=== PATIENT | male | born 1980 | race Caucasian/White ===

== ENCOUNTER 2016-11-28 23:37 | Emergency (ER) | payer SELFPAY ==
[2016-11-28] MEDS ORDERED: Ketorolac 30 MG/ML SDV IVPUSH ONE (23:51)
[2016-11-28] MEDS ORDERED: Sodium Chloride 0.9% 10 ML Syringe FLUSH PRN (23:51)
[2016-11-28] MEDS ORDERED: Ondansetron 4 MG/2 ML SDV IVPUSH ONE (23:51)
[2016-11-28] MEDS ORDERED: Sodium Chloride 0.9% 2.5 ML Syringe FLUSH PRN (23:51)
[2016-11-28] MEDS ORDERED: Sodium Chloride 0.9% 1,000 ML IV ONE (23:51)
[2016-11-28] MEDS ORDERED: HYDROmorphone 2 MG/ML Syringe IVPUSH ONE (23:51)
--- NOTE | 2016-11-28 23:54 | EDM.PDOC ---
ED HPI GENERAL MEDICAL PROBLEM - General Chief Complaint: Abdominal Pain Stated Complaint: ABDOMINAL PAIN/BACK PAIN Time Seen by Provider: 11/28/16 23:47 - History of Present Illness INITIAL COMMENTS - FREE TEXT/NARRATIVE: HISTORY AND PHYSICAL: History of present illness: Patient today 36-year-old male presents with a concern of right upper quadrant abdominal pain and associated nausea and states quite severe in cerebrotomy 5: 30 PM tonight he denies any traumas been no fever chills nausea vomiting he denies any history of prior gallbladder disease urolithiasis or other medical history. Review of systems: As per history of present illness and below otherwise all systems reviewed and negative. Past medical history: As per history of present illness and as reviewed below otherwise noncontributory. Surgical history: As per history of present illness and as reviewed below otherwise noncontributory. Social history: No reported history of drug or alcohol abuse. Family history: As per history of present illness and as reviewed below otherwise noncontributory. Physical exam: HEENT: Atraumatic, normocephalic, pupils reactive, negative for conjunctival pallor or scleral icterus, mucous membranes moist, throat clear, neck supple, nontender, trachea midline. Lungs: Clear to auscultation, breath sounds equal bilaterally, chest nontender. Heart: S1S2, regular, negative for clicks, rubs, or JVD. Abdomen: Soft, nondistended, tenderness in the right upper quadrant with deep palpation voluntary guarding no rebound. Negative for masses or hepatosplenomegaly. Negative for costovertebral tenderness. Pelvis: Stable nontender. Genitourinary: Deferred. Rectal: Deferred. Extremities: Atraumatic, negative for cords or calf pain. Neurovascular unremarkable. Neuro: Awake, alert, oriented. Cranial nerves II through XII unremarkable. Cerebellum unremarkable. Motor and sensory unremarkable throughout. Exam nonfocal. Diagnostics: CBC CMP amylase lipase UA ultrasound right upper quadrant chest x-ray Therapeutics: Normal saline 1 L bolus Toradol 30 mg IV Zofran 4 mg IV Dilaudid 1 mg IV Impression: #1 Right upper quadrant abdominal pain Definitive disposition and diagnosis as appropriate pending reevaluation and review of above. abdomen Pain Score (Numeric/FACES): 10 - Related Data Allergies Allergy/AdvReac Type Severity Reaction Status Date / Time No Known Allergies Allergy Verified 11/28/16 23:41 Home Meds: Home Meds . [No Known Home Meds] 11/28/16 [History] Past Medical History - Past Health History Medical/Surgical History: Denies Medical/Surgical History Social & Family History - Family History Family Medical History: Noncontributory - Tobacco Use Smoking Status *Q: Current Every Day Smoker Years of Tobacco use: 20 Packs/Tins Daily: 1 - Recreational Drug Use Recreational Drug Use: No ED ROS GENERAL - Review of Systems Review Of Systems: ROS reveals no pertinent complaints other than HPI. ED EXAM, GENERAL - Physical Exam Exam: See Below (See dictation) Course - Vital Signs Last Recorded V/S: Last Vital Signs Temp 35.5 C 11/28/16 23:42 Pulse 60 11/28/16 23:42 Resp 18 11/28/16 23:42 BP 170/105 H 11/28/16 23:42 Pulse Ox 97 11/28/16 23:42 - Orders/Labs/Meds Orders: Active Orders 24 hr Category Date Time Status EKG Documentation Completion [RC] STAT Care 11/28/16 23:49 Active Abdomen Ltd [US] Stat Exams 11/29/16 01:14 Taken Chest 1V Frontal [CR] Stat Exams 11/28/16 23:50 Taken Sodium Chloride 0.9% [Saline Flush] Med 11/28/16 23:51 Active 10 ml FLUSH ASDIRECTED PRN Sodium Chloride 0.9% [Saline Flush] Med 11/28/16 23:51 Active 2.5 ml FLUSH ASDIRECTED PRN Saline Lock Insert [OM.PC] Stat Oth 11/28/16 23:49 Ordered Medication Orders Sodium Chloride (Saline Flush) 10 ml FLUSH ASDIRECTED PRN PRN Reason: Keep Vein Open Sodium Chloride (Saline Flush) 2.5 ml FLUSH ASDIRECTED PRN PRN Reason: Keep Vein Open Labs: Laboratory Tests 11/29/16 11/29/16 11/29/16 Range/Units 00:15 00:15 00:15 WBC 12.67 H (4.0-11.0) K/uL RBC 5.10 (4.50-5.90) M/uL Hgb 15.5 (13.0-17.0) g/dL Hct 44.6 (38.0-50.0) % MCV 87.5 (80.0-98.0) fL MCH 30.4 (27.0-32.0) pg MCHC 34.8 (31.0-37.0) g/dL RDW Std Deviation 42.8 (28.0-62.0) fl RDW Coeff of Hernandez 13 (11.0-15.0) % Plt Count 151 (150-400) K/uL MPV 10.40 (7.40-12.00) fL Neut % (Auto) 84.3 H (48.0-80.0) % Lymph % (Auto) 12.1 L (16.0-40.0) % Buchanan % (Auto) 3.2 (0.0-15.0) % Eos % (Auto) 0.2 (0.0-7.0) % Baso % (Auto) 0.2 (0.0-1.5) % Neut # (Auto) 10.7 H (1.4-5.7) K/uL Lymph # (Auto) 1.5 (0.6-2.4) K/uL Buchanan # (Auto) 0.4 (0.0-0.8) K/uL Eos # (Auto) 0.0 (0.0-0.7) K/uL Baso # (Auto) 0.0 (0.0-0.1) K/uL Nucleated RBC % 0.0 /100WBC Nucleated RBCs # 0 K/uL INR 1.02 (0.86-1.11) Sodium 143 (136-146) mmol/L Potassium 4.1 (3.5-5.1) mmol/L Chloride 107 (98-110) mmol/L Carbon Dioxide 24 (21-31) mmol/L BUN 12 (6.0-23.0) mg/dL Creatinine 1.0 (0.6-1.5) mg/dL Est Cr Clr Drug Dosing 109.81 mL/min Estimated GFR (MDRD) > 60.0 ml/min Glucose 136 H (60-110) mg/dL Calcium 9.7 (8.8-10.8) mg/dL Total Bilirubin 0.4 (0.1-1.5) mg/dL AST 17 (5-40) IU/L ALT 26 (8-54) IU/L Alkaline Phosphatase 98 (40-150) Total Protein 7.3 (6.0-8.0) g/dL Albumin 4.3 (3.5-5.0) g/dL Globulin 3.0 (2.0-3.5) g/dL Albumin/Globulin Ratio 1.4 (1.3-2.8) Amylase 44 (10-90) U/L Lipase 13 (7-80) U/L Urine Color Urine Appearance Urine pH (5.0-8.0) Ur Specific [place] (1.001-1.035) Urine Protein (NEGATIVE) mg/dL Urine Glucose (UA) (NEGATIVE) mg/dL Urine Ketones (NEGATIVE) mg/dL Urine Occult Blood (NEGATIVE) Urine Nitrite (NEGATIVE) Urine Bilirubin (NEGATIVE) Urine Urobilinogen (<2.0) EU/dL Ur Leukocyte Esterase (NEGATIVE) Urine RBC (0-2/HPF) Urine WBC (0-5/HPF) Ur Epithelial Cells (NONE-FEW) Urine Bacteria (NEGATIVE) Urine Mucus (NONE-MOD) 11/29/16 Range/Units 00:20 WBC (4.0-11.0) K/uL RBC (4.50-5.90) M/uL Hgb (13.0-17.0) g/dL Hct (38.0-50.0) % MCV (80.0-98.0) fL MCH (27.0-32.0) pg MCHC (31.0-37.0) g/dL RDW Std Deviation (28.0-62.0) fl RDW Coeff of Hernandez (11.0-15.0) % Plt Count (150-400) K/uL MPV (7.40-12.00) fL Neut % (Auto) (48.0-80.0) % Lymph % (Auto) (16.0-40.0) % Buchanan % (Auto) (0.0-15.0) % Eos % (Auto) (0.0-7.0) % Baso % (Auto) (0.0-1.5) % Neut # (Auto) (1.4-5.7) K/uL Lymph # (Auto) (0.6-2.4) K/uL Buchanan # (Auto) (0.0-0.8) K/uL Eos # (Auto) (0.0-0.7) K/uL Baso # (Auto) (0.0-0.1) K/uL Nucleated RBC % /100WBC Nucleated RBCs # K/uL INR (0.86-1.11) Sodium (136-146) mmol/L Potassium (3.5-5.1) mmol/L Chloride (98-110) mmol/L Carbon Dioxide (21-31) mmol/L BUN (6.0-23.0) mg/dL Creatinine (0.6-1.5) mg/dL Est Cr Clr Drug Dosing mL/min Estimated GFR (MDRD) ml/min Glucose (60-110) mg/dL Calcium (8.8-10.8) mg/dL Total Bilirubin (0.1-1.5) mg/dL AST (5-40) IU/L ALT (8-54) IU/L Alkaline Phosphatase (40-150) Total Protein (6.0-8.0) g/dL Albumin (3.5-5.0) g/dL Globulin (2.0-3.5) g/dL Albumin/Globulin Ratio (1.3-2.8) Amylase (10-90) U/L Lipase (7-80) U/L Urine Color YELLOW Urine Appearance CLEAR Urine pH 6.0 (5.0-8.0) Ur Specific [place] >= 1.030 (1.001-1.035) Urine Protein NEGATIVE (NEGATIVE) mg/dL Urine Glucose (UA) NEGATIVE (NEGATIVE) mg/dL Urine Ketones NEGATIVE (NEGATIVE) mg/dL Urine Occult Blood NEGATIVE (NEGATIVE) Urine Nitrite NEGATIVE (NEGATIVE) Urine Bilirubin NEGATIVE (NEGATIVE) Urine Urobilinogen 0.2 (<2.0) EU/dL Ur Leukocyte Esterase NEGATIVE (NEGATIVE) Urine RBC 0-3 (0-2/HPF) Urine WBC 2-4 (0-5/HPF) Ur Epithelial Cells RARE (NONE-FEW) Urine Bacteria RARE (NEGATIVE) Urine Mucus LIGHT (NONE-MOD) Meds: Medications Generic Name Dose Route Start Last Admin Trade Name Freq PRN Reason Stop Dose Admin Sodium Chloride 10 ml 11/28/16 23:51 Saline Flush FLUSH ASDIRECTED PRN Keep Vein Open Sodium Chloride 2.5 ml 11/28/16 23:51 Saline Flush FLUSH ASDIRECTED PRN Keep Vein Open Discontinued Medications Generic Name Dose Route Start Last Admin Trade Name Freq PRN Reason Stop Dose Admin Hydromorphone HCl 1 mg 11/28/16 23:51 11/29/16 00:21 Dilaudid IVPUSH 11/28/16 23:52 1 mg ONETIME ONE Administration Sodium Chloride 1,000 mls @ 999 mls/hr 11/28/16 23:51 11/29/16 00:18 Normal Saline IV 11/29/16 00:51 999 mls/hr STAT ONE Administration Ketorolac Tromethamine 30 mg 11/28/16 23:51 11/29/16 00:19 Toradol IVPUSH 11/28/16 23:52 30 mg ONETIME ONE Administration Ondansetron HCl 4 mg 11/28/16 23:51 11/29/16 00:17 Zofran IVPUSH 11/28/16 23:52 4 mg ONETIME ONE Administration Departure - Departure Time of Disposition: 02:21 Disposition: Home, Self-Care 01 Condition: Good Clinical Impression: Biliary colic, Cholelithiasis - Discharge Information Forms: ED Department Discharge Additional Instructions: The following information is given to patients seen in the emergency department who are being discharged to home. This information is to outline your options for follow-up care. We provide all patients seen in our emergency department with a follow-up referral. The need for follow-up, as well as the timing and circumstances, are variable depending upon the specifics of your emergency department visit. If you don't have a primary care physician on staff, we will provide you with a referral. We always advise you to contact your personal physician following an emergency department visit to inform them of the circumstance of the visit and for follow-up with them and/or the need for any referrals to a consulting specialist. The emergency department will also refer you to a specialist when appropriate. This referral assures that you have the opportunity for followup care with a specialist. All of these measure are taken in an effort to provide you with optimal care, which includes your followup. Under all circumstances we always encourage you to contact your private physician who remains a resource for coordinating your care. When calling for followup care, please make the office aware that this follow-up is from your recent emergency room visit. If for any reason you are refused follow-up, please contact the [facility] emergency department at and asked to speak to the emergency department charge nurse. [facility] Specialty Care - General Surgery Professional Building [address] [place] [address], [address] [place] [address] Diet as discussed all schedule routine appointment general surgery above is discussed to return as needed as discussed - My Orders Last 24 Hours: My Active Orders 11/28/16 23:49 EKG Documentation Completion [RC] STAT Saline Lock Insert [OM.PC] Stat 11/28/16 23:50 Chest 1V Frontal [CR] Stat 11/28/16 23:51 Sodium Chloride 0.9% [Saline Flush] 10 ml FLUSH ASDIRECTED PRN Sodium Chloride 0.9% [Saline Flush] 2.5 ml FLUSH ASDIRECTED PRN 11/29/16 01:14 Abdomen Ltd [US] Stat - Assessment/Plan Last 24 Hours: My Active Orders 11/28/16 23:49 EKG Documentation Completion [RC] STAT Saline Lock Insert [OM.PC] Stat 11/28/16 23:50 Chest 1V Frontal [CR] Stat 11/28/16 23:51 Sodium Chloride 0.9% [Saline Flush] 10 ml FLUSH ASDIRECTED PRN Sodium Chloride 0.9% [Saline Flush] 2.5 ml FLUSH ASDIRECTED PRN 11/29/16 01:14 Abdomen Ltd [US] Stat
[2016-11-29 00:53] LABS: CHLORIDE,CL 107 mmol/L (98-110); SODIUM,NA 143 mmol/L (136-146)
[2016-11-29 02:50] VITALS: BP 102/67
--- NOTE | 2016-11-30 15:17 | CR ---
EXAM DATE: 11/28/16 PATIENT'S AGE: 36 Patient: MAL RANDOLPH Facility: [place], [place] Site . Site : 1980 Study: XRay Chest [id number] 12:54:59 AM Ordering Physician: Ruba Cordero Final Report: INDICATION: PAIN, SOB TECHNIQUE: Chest 1 view. COMPARISON: None. FINDINGS: Cardiovascular and mediastinum: Heart size and vasculature are normal in caliber and appearance. Mediastinum is within normal limits. Lungs and pleural space: Lungs are clear. No sign of infiltrate or mass. No sign of pleural effusion. No pneumothorax. Bones and soft tissues: No significant findings. IMPRESSION: Unremarkable chest. Dictated by: Jhoan Sheth MD @ 11/29/2016 00:59:12 (Electronic Signature) Report Signed by Proxy. CARISA
--- NOTE | 2016-11-30 15:18 | US ---
EXAM DATE: 11/28/16 PATIENT'S AGE: 36 Patient: MAL RANDOLPH Facility: [place], [place] Site . Site : 1980 Study: US Abdomen [id number]/4/[id number] 1:35:39 AM Ordering Physician: Ruba Cordero Final Report: INDICATION: RUQ PAIN TECHNIQUE: Ultrasound abdomen limited. Sonographic images of the right upper quadrant were obtained using day-scale and color Doppler images. COMPARISON: None FINDINGS: Liver: Normal in size and echotexture. No masses. No intrahepatic biliary dilatation. Gallbladder: Cholelithiasis. Mild thickening of the gallbladder wall measuring up to 4mm. No pericholecystic fluid. Common bile duct: 3 mm. Pancreas: Normal. Right kidney: 11.9 cm. Normal echotexture and cortex. No masses, stones, or hydronephrosis. Vasculature: Proximal abdominal aorta and IVC are normal. IMPRESSION: Cholelithiasis. Mild thickening of the gallbladder wall measuring up to 4mm. Dictated by Lavell Brown MD @ 11/29/2016 1:41:21 AM Dictated by: Lavell Brown MD @ 11/29/2016 01:42:22 (Electronic Signature) Report Signed by Proxy. CARISA
== END 2016-11-29 02:48 | disposition home or self-care (01) ==
LOC: MW.ED 23:37
DX: K80.70 Calculus of gallbladder and bile duct without cholecystitis without obstruction (principal); F17.210 Nicotine dependence, cigarettes, uncomplicated
CPT/HCPCS: 36415; 71010; 76705; 80053; 81001; 82150; 83690; 85025; 85610; 96361; 96374; 96375; 99285; J1170; J1885; J2405; J7040; 99283

== ENCOUNTER 2017-04-02 23:13 | Emergency (ER) | payer BC ==
[2017-04-02] MEDS ORDERED: Ketorolac 30 MG/ML SDV IVPUSH ONE (23:40)
[2017-04-02] MEDS ORDERED: Sodium Chloride 0.9% 1,000 ML IV ONE (23:40)
[2017-04-02] MEDS ORDERED: Ondansetron 4 MG/2 ML SDV IVPUSH ONE (23:40)
--- NOTE | 2017-04-02 23:42 | EDM.PDOC ---
ED HPI GENERAL MEDICAL PROBLEM - General Chief Complaint: Abdominal Pain Stated Complaint: STOMACH PAIN Time Seen by Provider: 04/02/17 23:37 - History of Present Illness INITIAL COMMENTS - FREE TEXT/NARRATIVE: HISTORY AND PHYSICAL: History of present illness: Patient 36-year-old white male sensory concern of abdominal pain patient was seen prior in the emergency department with similar and diagnosed with cholelithiasis he was discharged with biliary colic with follow-up with general surgery patient did not make appointment or see primary medical doctor he returns with recurrence of pain nausea no vomiting fever chills shortness of breath or other concern Review of systems: As per history of present illness and below otherwise all systems reviewed and negative. Past medical history: As per history of present illness and as reviewed below otherwise noncontributory. Surgical history: As per history of present illness and as reviewed below otherwise noncontributory. Social history: No reported history of drug or alcohol abuse. Family history: As per history of present illness and as reviewed below otherwise noncontributory. Physical exam: HEENT: Atraumatic, normocephalic, pupils reactive, negative for conjunctival pallor or scleral icterus, mucous membranes moist, throat clear, neck supple, nontender, trachea midline. Lungs: Clear to auscultation, breath sounds equal bilaterally, chest nontender. Heart: S1S2, regular, negative for clicks, rubs, or JVD. Abdomen: Soft, nondistended, mild tenderness in right upper quadrant deep palpation no rebound no guarding. Negative for masses or hepatosplenomegaly. Negative for costovertebral tenderness. Pelvis: Stable nontender. Genitourinary: Deferred. Rectal: Deferred. Extremities: Atraumatic, negative for cords or calf pain. Neurovascular unremarkable. Neuro: Awake, alert, oriented. Cranial nerves II through XII unremarkable. Cerebellum unremarkable. Motor and sensory unremarkable throughout. Exam nonfocal. Diagnostics: CBC CMP amylase lipase Therapeutics: .9 normal saline 1 L bolus Toradol 30 mg IV Zofran 4 mg IV Impression: #1 biliary colic #2 medical noncompliance Definitive disposition and diagnosis as appropriate pending reevaluation and review of above. - Related Data Allergies Allergy/AdvReac Type Severity Reaction Status Date / Time No Known Allergies Allergy Verified 04/02/17 23:42 Home Meds: Home Meds . [No Known Home Meds] 11/28/16 [History] Past Medical History - Past Health History Medical/Surgical History: Denies Medical/Surgical History Social & Family History - Family History Family Medical History: Noncontributory - Tobacco Use Smoking Status *Q: Current Every Day Smoker Years of Tobacco use: 20 Packs/Tins Daily: 1 - Recreational Drug Use Recreational Drug Use: No ED ROS GENERAL - Review of Systems Review Of Systems: ROS reveals no pertinent complaints other than HPI. ED EXAM, GENERAL - Physical Exam Exam: See Below (See dictation) Course - Vital Signs Last Recorded V/S: Last Vital Signs Temp 36.3 C 04/02/17 23:13 Pulse 61 04/02/17 23:13 Resp 18 04/02/17 23:13 BP 149/87 H 04/02/17 23:13 Pulse Ox 95 04/02/17 23:13 - Orders/Labs/Meds Orders: Active Orders 24 hr Category Date Time Status Sodium Chloride 0.9% [Normal Saline] 1,000 ml Med 04/02/17 23:40 Active IV STAT Medication Orders Sodium Chloride (Normal Saline) 1,000 mls @ 999 mls/hr IV STAT ONE Stop: 04/03/17 00:40 Last Admin: 04/03/17 00:06 Dose: 999 mls/hr Labs: Laboratory Tests 04/02/17 Range/Units 00:01 WBC 8.50 (4.0-11.0) K/uL RBC 5.11 (4.50-5.90) M/uL Hgb 15.5 (13.0-17.0) g/dL Hct 44.9 (38.0-50.0) % MCV 87.9 (80.0-98.0) fL MCH 30.3 (27.0-32.0) pg MCHC 34.5 (31.0-37.0) g/dL RDW Std Deviation 41.7 (28.0-62.0) fl RDW Coeff of Hernandez 13 (11.0-15.0) % Plt Count 145 L (150-400) K/uL MPV 10.50 (7.40-12.00) fL Neut % (Auto) 64.0 (48.0-80.0) % Lymph % (Auto) 26.8 (16.0-40.0) % Ray % (Auto) 7.6 (0.0-15.0) % Eos % (Auto) 1.5 (0.0-7.0) % Baso % (Auto) 0.1 (0.0-1.5) % Neut # (Auto) 5.4 (1.4-5.7) K/uL Lymph # (Auto) 2.3 (0.6-2.4) K/uL Ray # (Auto) 0.7 (0.0-0.8) K/uL Eos # (Auto) 0.1 (0.0-0.7) K/uL Baso # (Auto) 0.0 (0.0-0.1) K/uL Meds: Medications Generic Name Dose Route Start Last Admin Trade Name Freq PRN Reason Stop Dose Admin Sodium Chloride 1,000 mls @ 999 mls/hr 04/02/17 23:40 04/03/17 00:06 Normal Saline IV 04/03/17 00:40 999 mls/hr STAT ONE Administration Discontinued Medications Generic Name Dose Route Start Last Admin Trade Name Freq PRN Reason Stop Dose Admin Ketorolac Tromethamine 30 mg 04/02/17 23:40 04/03/17 00:06 Toradol IVPUSH 04/02/17 23:41 30 mg ONETIME ONE Administration Ondansetron HCl 4 mg 04/02/17 23:40 04/03/17 00:06 Zofran IVPUSH 04/02/17 23:41 4 mg ONETIME ONE Administration Departure - Departure Time of Disposition: 00:30 Disposition: Home, Self-Care 01 Condition: Good Clinical Impression: Cholelithiasis, Biliary colic - Discharge Information Referrals: PCP,None [Primary Care Provider] - Forms: ED Department Discharge Additional Instructions: The following information is given to patients seen in the emergency department who are being discharged to home. This information is to outline your options for follow-up care. We provide all patients seen in our emergency department with a follow-up referral. The need for follow-up, as well as the timing and circumstances, are variable depending upon the specifics of your emergency department visit. If you don't have a primary care physician on staff, we will provide you with a referral. We always advise you to contact your personal physician following an emergency department visit to inform them of the circumstance of the visit and for follow-up with them and/or the need for any referrals to a consulting specialist. The emergency department will also refer you to a specialist when appropriate. This referral assures that you have the opportunity for followup care with a specialist. All of these measure are taken in an effort to provide you with optimal care, which includes your followup. Under all circumstances we always encourage you to contact your private physician who remains a resource for coordinating your care. When calling for followup care, please make the office aware that this follow-up is from your recent emergency room visit. If for any reason you are refused follow-up, please contact the [facility] emergency department at and asked to speak to the emergency department charge nurse. [facility] Specialty Care - General Surgery Professional Building [address] [place] [address], [address] [place] [address] Motrin/Tylenol as directed diet as discussed: Schedule appointment with general surgery as discussed return as needed as discussed - My Orders Last 24 Hours: My Active Orders 04/02/17 23:40 Sodium Chloride 0.9% [Normal Saline] 1,000 ml IV STAT - Assessment/Plan Last 24 Hours: My Active Orders 04/02/17 23:40 Sodium Chloride 0.9% [Normal Saline] 1,000 ml IV STAT
[2017-04-03 00:52] LABS: CHLORIDE,CL 106 mmol/L (98-110); SODIUM,NA 140 mmol/L (136-146)
[2017-04-03 01:24] VITALS: BP 119/64
== END 2017-04-03 01:22 | disposition home or self-care (01) ==
LOC: MW.ED 23:13
DX: K80.70 Calculus of gallbladder and bile duct without cholecystitis without obstruction (principal); F17.210 Nicotine dependence, cigarettes, uncomplicated
CPT/HCPCS: 80053; 82150; 83690; 85025; 96361; 96374; 96375; 99284; J1885; J2405; J7040; 99282

== ENCOUNTER 2017-06-04 03:12 | Emergency (ER) | payer BC ==
[2017-06-04] MEDS ORDERED: Sodium Chloride 0.9% 1,000 ML IV ONE (03:34)
[2017-06-04] MEDS ORDERED: Ketorolac 30 MG/ML SDV IVPUSH ONE (03:34)
[2017-06-04] MEDS ORDERED: Sodium Chloride 0.9% 10 ML Syringe FLUSH PRN (03:34)
[2017-06-04] MEDS ORDERED: Sodium Chloride 0.9% 2.5 ML Syringe FLUSH PRN (03:34)
[2017-06-04] MEDS ORDERED: Ondansetron 4 MG/2 ML SDV IVPUSH ONE (03:34)
--- NOTE | 2017-06-04 03:38 | EDM.PDOC ---
ED HPI GENERAL MEDICAL PROBLEM - General Chief Complaint: Abdominal Pain Stated Complaint: GALLBLADDER Time Seen by Provider: 06/04/17 03:27 - History of Present Illness INITIAL COMMENTS - FREE TEXT/NARRATIVE: HISTORY AND PHYSICAL: History of present illness: The patient is a 36-year-old male who is a known history of gallstones from an ultrasound that was performed here in the emergency department on November 29 and presents with a recurrent episode of pain in the right upper quadrant consistent with his gallbladder pain. Patient was seen and evaluated here on November 29 and was referred to general surgery but did not follow-up. He represented here on April 02 for similar pain without fever nausea vomiting or diarrhea and had normal blood work and was treated symptomatically and again re-referred to the clinic which he did not do. The patient tells me he is waiting for his insurance to kick in and he forgot about the gallstones because he's been doing well since March. Again he has not had fever nausea vomiting or diarrhea no black or bloody stools and the pain is in the right upper quadrant similar to his prior episodes. The patient has not been observing a low fat diet and eats steak yesterday. The pain started at 2 PM and has been persistent and he did not try anything [id number]. He has no chest pain cough congestion no flank pain or complaints Review of systems: As per history of present illness and below otherwise all systems reviewed and negative. Past medical history: As per history of present illness and as reviewed below otherwise noncontributory. Surgical history: As per history of present illness and as reviewed below otherwise noncontributory. Social history: No reported history of drug or alcohol abuse. Family history: As per history of present illness and as reviewed below otherwise noncontributory. Physical exam: Gen.: Well-developed well-nourished obese man who is nontoxic and speaking clearly and easily in ED. Vital signs have been reviewed by me HEENT: Atraumatic, normocephalic, negative for conjunctival pallor or scleral icterus, mucous membranes moist, throat clear, neck supple, nontender, trachea midline. Lungs: Clear to auscultation, breath sounds equal bilaterally, chest nontender. Heart: S1S2, regular, negative for clicks, rubs, or JVD. Abdomen: Soft, nondistended, minimal tenderness on deep palpation in the right upper quadrant without rebound or guarding. Bowel sounds are hypoactive Negative for masses or hepatosplenomegaly. Negative for costovertebral tenderness. Pelvis: Stable nontender. Genitourinary: Deferred. Rectal: Deferred. Extremities: Atraumatic, negative for cords or calf pain. Neurovascular unremarkable. Neuro: Awake, alert, oriented. Cranial nerves II through XII unremarkable. Cerebellum unremarkable. Motor and sensory unremarkable throughout. Exam nonfocal. Diagnostics: CBC CMP amylase lipase Patient's gallbladder ultrasound on November 29 was reviewed by me Therapeutics: IV fluids Toradol Zofran Impression: Biliary colic; noncompliance of medical advice and direction Definitive disposition and diagnosis as appropriate pending reevaluation and review of above. Abdomen Pain Score (Numeric/FACES): 8 - Related Data Allergies Allergy/AdvReac Type Severity Reaction Status Date / Time No Known Allergies Allergy Verified 06/04/17 03:23 Home Meds: Home Meds . [No Known Home Meds] 11/28/16 [History] Past Medical History - Past Health History Medical/Surgical History: Denies Medical/Surgical History HEENT History: Reports: None Cardiovascular History: Reports: None Respiratory History: Reports: None Gastrointestinal History: Reports: Cholelithiasis Genitourinary History: Reports: None Musculoskeletal History: Reports: None Neurological History: Reports: None Psychiatric History: Reports: None Endocrine/Metabolic History: Reports: None Hematologic History: Reports: None Immunologic History: Reports: None Oncologic (Cancer) History: Reports: None Dermatologic History: Reports: None - Infectious Disease History Infectious Disease History: Reports: Chicken Pox Social & Family History - Family History Family Medical History: Noncontributory - Tobacco Use Smoking Status *Q: Current Every Day Smoker Years of Tobacco use: 17 Packs/Tins Daily: 1 - Caffeine Use Caffeine Use: Reports: Energy Drinks - Recreational Drug Use Recreational Drug Use: No ED ROS GENERAL - Review of Systems Review Of Systems: ROS reveals no pertinent complaints other than HPI. ED EXAM, GENERAL - Physical Exam Exam: See Below (See dictation) Course - Vital Signs Last Recorded V/S: Last Vital Signs Temp 36.4 C 06/04/17 03:23 Pulse 82 06/04/17 03:23 Resp 18 06/04/17 03:23 BP 154/104 H 06/04/17 03:23 Pulse Ox 97 06/04/17 03:23 - Orders/Labs/Meds Orders: Active Orders 24 hr Category Date Time Status Sodium Chloride 0.9% [Normal Saline] 1,000 ml Med 06/04/17 03:34 Active IV STAT Sodium Chloride 0.9% [Saline Flush] Med 06/04/17 03:34 Active 10 ml FLUSH ASDIRECTED PRN Sodium Chloride 0.9% [Saline Flush] Med 06/04/17 03:34 Active 2.5 ml FLUSH ASDIRECTED PRN Saline Lock Insert [OM.PC] Stat Oth 06/04/17 03:34 Ordered Medication Orders Sodium Chloride (Normal Saline) 1,000 mls @ 999 mls/hr IV STAT ONE Stop: 06/04/17 04:34 Last Admin: 06/04/17 03:48 Dose: 999 mls/hr Sodium Chloride (Saline Flush) 10 ml FLUSH ASDIRECTED PRN PRN Reason: Keep Vein Open Sodium Chloride (Saline Flush) 2.5 ml FLUSH ASDIRECTED PRN PRN Reason: Keep Vein Open Labs: Laboratory Tests 06/04/17 06/04/17 Range/Units 03:30 03:30 WBC 9.18 (4.0-11.0) K/uL RBC 5.23 (4.50-5.90) M/uL Hgb 16.3 (13.0-17.0) g/dL Hct 46.0 (38.0-50.0) % MCV 88.0 (80.0-98.0) fL MCH 31.2 (27.0-32.0) pg MCHC 35.4 (31.0-37.0) g/dL RDW Std Deviation 42.5 (28.0-62.0) fl RDW Coeff of Hernandez 13 (11.0-15.0) % Plt Count 166 (150-400) K/uL MPV 10.70 (7.40-12.00) fL Neut % (Auto) 45.6 L (48.0-80.0) % Lymph % (Auto) 42.0 H (16.0-40.0) % [place] % (Auto) 10.1 (0.0-15.0) % Eos % (Auto) 2.1 (0.0-7.0) % Baso % (Auto) 0.2 (0.0-1.5) % Neut # (Auto) 4.2 (1.4-5.7) K/uL Lymph # (Auto) 3.9 H (0.6-2.4) K/uL [place] # (Auto) 0.9 H (0.0-0.8) K/uL Eos # (Auto) 0.2 (0.0-0.7) K/uL Baso # (Auto) 0.0 (0.0-0.1) K/uL Nucleated RBC % 0.0 /100WBC Nucleated RBCs # 0 K/uL Sodium 141 (136-146) mmol/L Potassium 4.4 (3.5-5.1) mmol/L Chloride 105 (98-110) mmol/L Carbon Dioxide 26 (21-31) mmol/L BUN 20 (6.0-23.0) mg/dL Creatinine 1.0 (0.6-1.5) mg/dL Est Cr Clr Drug Dosing 109.81 mL/min Estimated GFR (MDRD) > 60.0 ml/min Glucose 109 (60-110) mg/dL Calcium 9.7 (8.8-10.8) mg/dL Total Bilirubin 0.3 (0.1-1.5) mg/dL AST 22 (5-40) IU/L ALT 28 (8-54) IU/L Alkaline Phosphatase 94 (40-150) Total Protein 7.2 (6.0-8.0) g/dL Albumin 4.3 (3.5-5.0) g/dL Globulin 2.9 (2.0-3.5) g/dL Albumin/Globulin Ratio 1.5 (1.3-2.8) Amylase 37 (10-90) U/L Lipase 16 (7-80) U/L Meds: Medications Generic Name Dose Route Start Last Admin Trade Name Freq PRN Reason Stop Dose Admin Sodium Chloride 1,000 mls @ 999 mls/hr 06/04/17 03:34 06/04/17 03:48 Normal Saline IV 06/04/17 04:34 999 mls/hr STAT ONE Administration Sodium Chloride 10 ml 06/04/17 03:34 Saline Flush FLUSH ASDIRECTED PRN Keep Vein Open Sodium Chloride 2.5 ml 06/04/17 03:34 Saline Flush FLUSH ASDIRECTED PRN Keep Vein Open Discontinued Medications Generic Name Dose Route Start Last Admin Trade Name Freq PRN Reason Stop Dose Admin Ketorolac Tromethamine 30 mg 06/04/17 03:34 06/04/17 03:50 Toradol IVPUSH 06/04/17 03:35 30 mg ONETIME ONE Administration Ondansetron HCl 4 mg 06/04/17 03:34 06/04/17 03:48 Zofran IVPUSH 06/04/17 03:35 4 mg ONETIME ONE Administration Departure - Departure Time of Disposition: 18 Disposition: Home, Self-Care 01 Condition: Good Clinical Impression: Biliary colic - Discharge Information Referrals: PCP,None [Primary Care Provider] - Forms: ED Department Discharge Additional Instructions: The following information is given to patients seen in the emergency department who are being discharged to home. This information is to outline your options for follow-up care. We provide all patients seen in our emergency department with a follow-up referral. The need for follow-up, as well as the timing and circumstances, are variable depending upon the specifics of your emergency department visit. If you don't have a primary care physician on staff, we will provide you with a referral. We always advise you to contact your personal physician following an emergency department visit to inform them of the circumstance of the visit and for follow-up with them and/or the need for any referrals to a consulting specialist. The emergency department will also refer you to a specialist when appropriate. This referral assures that you have the opportunity for followup care with a specialist. All of these measure are taken in an effort to provide you with optimal care, which includes your followup. Under all circumstances we always encourage you to contact your private physician who remains a resource for coordinating your care. When calling for followup care, please make the office aware that this follow-up is from your recent emergency room visit. If for any reason you are refused follow-up, please contact the [facility] emergency department at and ask to speak to the emergency department charge nurse. [facility] Professional [facility] [address] [place] [phone] Please call the clinic on Monday to schedule a follow-up appointment with one of our surgeons for your gallbladder issues. Please observe a low-fat diet as we discussed and push hydration avoiding caffeinated products. Please use medications as needed and prescribed. Return to ER as needed and as discussed. You have been prescribed tramadol from [facility] to use when you're only at home. Otherwise during the daytime you can use Tylenol or ibuprofen for pain - My Orders Last 24 Hours: My Active Orders 06/04/17 03:34 Sodium Chloride 0.9% [Normal Saline] 1,000 ml IV STAT Sodium Chloride 0.9% [Saline Flush] 10 ml FLUSH ASDIRECTED PRN Sodium Chloride 0.9% [Saline Flush] 2.5 ml FLUSH ASDIRECTED PRN Saline Lock Insert [OM.PC] Stat - Assessment/Plan Last 24 Hours: My Active Orders 06/04/17 03:34 Sodium Chloride 0.9% [Normal Saline] 1,000 ml IV STAT Sodium Chloride 0.9% [Saline Flush] 10 ml FLUSH ASDIRECTED PRN Sodium Chloride 0.9% [Saline Flush] 2.5 ml FLUSH ASDIRECTED PRN Saline Lock Insert [OM.PC] Stat
[2017-06-04 04:02] LABS: CHLORIDE,CL 105 mmol/L (98-110); SODIUM,NA 141 mmol/L (136-146)
[2017-06-04 05:26] VITALS: BP 141/62
== END 2017-06-04 04:50 | disposition home or self-care (01) ==
LOC: MW.ED 03:12
DX: K80.50 Calculus of bile duct without cholangitis or cholecystitis without obstruction (principal); F17.210 Nicotine dependence, cigarettes, uncomplicated
CPT/HCPCS: 80053; 82150; 83690; 85025; 96361; 96374; 96375; 99284; J1885; J2405; J7040

== ENCOUNTER 2019-02-18 13:05 | Inpatient (IN) | payer BC ==
--- NOTE | 2019-02-18 13:21 | EDM.PDOC ---
ED HPI GENERAL MEDICAL PROBLEM - General Chief Complaint: General Stated Complaint: RIB INJURY, TROUBLE BREATHING Time Seen by Provider: 02/18/19 13:21 Source of Information: Reports: Patient History Limitations: Reports: No Limitations - History of Present Illness INITIAL COMMENTS - FREE TEXT/NARRATIVE: HISTORY AND PHYSICAL: History of present illness: Patient is a 38-year-old male presents to the ED with complaint of rib pain and shortness of breath. Patient states he was on a ladder when he fell about 10-12 feet on to concrete landing on his right side. He is having pain in the left anterior chest wall radiating to the back. He states he can not take a deep breath secondary to the pain. He denies head injury, loss of consciousness, neck pain, hip pain, extremity pain. He walked in to ED without difficulty. Patient is 90% on RA. Review of systems: As per history of present illness and below otherwise all systems reviewed and negative. Past medical history: As per history of present illness and as reviewed below otherwise noncontributory. Surgical history: As per history of present illness and as reviewed below otherwise noncontributory. Social history: No reported history of drug or alcohol abuse. Family history: As per history of present illness and as reviewed below otherwise noncontributory. Physical exam: General: Patient sitting comfortably in no acute distress and nontoxic appearing HEENT: Atraumatic, normocephalic, pupils reactive, negative for conjunctival pallor or scleral icterus, mucous membranes moist, throat clear, neck supple, nontender, trachea midline. No meningeal signs. Lungs: Breath sounds diminished like due decreased effort, pain to palpation of right anterior, lateral, and posterior chest wall to palpation Heart: S1S2, regular, negative for clicks, rubs, or overt murmur. Abdomen: Soft, nondistended, nontender. Negative for masses or hepatosplenomegaly. Negative for costovertebral tenderness. No rigidity, rebound , guarding. Pelvis: Stable nontender. Genitourinary: Deferred. Rectal: Deferred. Extremities: Atraumatic, negative for cords or calf pain. Neurovascular unremarkable. Neuro: Awake, alert, oriented. Cranial nerves II through XII unremarkable. Cerebellum unremarkable. Motor and sensory unremarkable throughout. Exam nonfocal. Notes: Patient later complaining of pain to the right hip, x-ray ordered Diagnostics: CBC, CMP, chest x-ray, CT chest w/ contrast, x-ray right hip and pelvis Therapeutics: 1L NS IV 4mg morphine IV 1mg Dilaudid IV 4mg Zofran IV Prescriptions: Impression: Right 7th rib fracture, right pneumothorax with mild subcutaneous emphysema Plan: Discussed with Dr. Schultz, patient will be admitted to observation Definitive disposition and diagnosis as appropriate pending reevaluation and review of above. Right Ribcage Pain Score (Numeric/FACES): 10 - Related Data Allergies Allergy/AdvReac Type Severity Reaction Status Date / Time No Known Allergies Allergy Verified 02/18/19 13:15 Home Meds: Home Meds Cyclobenzaprine [Flexeril] 10 mg PO TID PRN #30 tab 12/28/17 [Rx] Past Medical History - Past Health History Medical/Surgical History: Denies Medical/Surgical History HEENT History: Reports: Impaired Vision, Other (See Below) Other HEENT History: wears glasses Cardiovascular History: Reports: None Respiratory History: Reports: None Gastrointestinal History: Reports: Cholelithiasis Genitourinary History: Reports: None Musculoskeletal History: Reports: None Neurological History: Reports: None Psychiatric History: Reports: None Endocrine/Metabolic History: Reports: None Hematologic History: Reports: None Immunologic History: Reports: None Oncologic (Cancer) History: Reports: None Dermatologic History: Reports: None - Infectious Disease History Infectious Disease History: Reports: Chicken Pox - Past Surgical History HEENT Surgical History: Reports: None GI Surgical History: Reports: Cholecystectomy Social & Family History - Family History Family Medical History: Noncontributory - Tobacco Use Smoking Status *Q: Current Every Day Smoker Years of Tobacco use: 20 Packs/Tins Daily: 1 - Caffeine Use Caffeine Use: Reports: Coffee, Energy Drinks, Soda - Recreational Drug Use Recreational Drug Use: No ED ROS GENERAL - Review of Systems Review Of Systems: ROS reveals no pertinent complaints other than HPI. ED EXAM, GENERAL - Physical Exam Exam: See Below (see dictation) Course - Vital Signs Last Recorded V/S: Last Vital Signs Temp 96.6 F 02/18/19 13:15 Pulse 84 02/18/19 16:20 Resp 20 02/18/19 16:20 BP 136/67 02/18/19 16:20 Pulse Ox 94 L 02/18/19 16:20 - Orders/Labs/Meds Orders: Active Orders 24 hr Category Date Time Status Admission Status [Patient Status] [ADT] Stat ADT 02/18/19 16:31 Ordered Sodium Chloride 0.9% [Saline Flush] Med 02/18/19 13:31 Active 10 ml FLUSH ASDIRECTED PRN Sodium Chloride 0.9% [Saline Flush] Med 02/18/19 13:31 Active 2.5 ml FLUSH ASDIRECTED PRN Saline Lock Insert [OM.PC] Stat Oth 02/18/19 13:31 Ordered Medication Orders Sodium Chloride (Saline Flush) 10 ml FLUSH ASDIRECTED PRN PRN Reason: Keep Vein Open Last Admin: 02/18/19 13:59 Dose: 10 ml Sodium Chloride (Saline Flush) 2.5 ml FLUSH ASDIRECTED PRN PRN Reason: Keep Vein Open Last Admin: 02/18/19 13:59 Dose: 2.5 ml Labs: Laboratory Tests 02/18/19 02/18/19 Range/Units 13:55 13:55 WBC 13.16 H (4.0-11.0) K/uL RBC 5.31 (4.50-5.90) M/uL Hgb 16.5 (13.0-17.0) g/dL Hct 47.4 (38.0-50.0) % MCV 89.3 (80.0-98.0) fL MCH 31.1 (27.0-32.0) pg MCHC 34.8 (31.0-37.0) g/dL RDW Std Deviation 43.2 (28.0-62.0) fl RDW Coeff of Hernandez 13 (11.0-15.0) % Plt Count 159 (150-400) K/uL MPV 10.10 (7.40-12.00) fL Neut % (Auto) 75.4 (48.0-80.0) % Lymph % (Auto) 17.4 (16.0-40.0) % [place] % (Auto) 6.2 (0.0-15.0) % Eos % (Auto) 0.8 (0.0-7.0) % Baso % (Auto) 0.2 (0.0-1.5) % Neut # (Auto) 9.9 H (1.4-5.7) K/uL Lymph # (Auto) 2.3 (0.6-2.4) K/uL [place] # (Auto) 0.8 (0.0-0.8) K/uL Eos # (Auto) 0.1 (0.0-0.7) K/uL Baso # (Auto) 0.0 (0.0-0.1) K/uL Nucleated RBC % 0.0 /100WBC Nucleated RBCs # 0 K/uL Sodium 139 (136-148) mmol/L Potassium 4.1 (3.5-5.1) mmol/L Chloride 100 (98-107) mmol/L Carbon Dioxide 29.3 (21.0-32.0) mmol/L BUN 15 (7.0-18.0) mg/dL Creatinine 1.1 (0.8-1.3) mg/dL Est Cr Clr Drug Dosing 94.94 mL/min Estimated GFR (MDRD) > 60.0 ml/min Glucose 113 H (74-106) mg/dL Calcium 9.5 (8.5-10.1) mg/dL Total Bilirubin 0.3 (0.2-1.0) mg/dL AST 35 (15-37) IU/L ALT 51 (14-63) IU/L Alkaline Phosphatase 89 (46-116) U/L Total Protein 7.9 (6.4-8.2) g/dL Albumin 4.3 (3.4-5.0) g/dL Globulin 3.6 (2.6-4.0) g/dL Albumin/Globulin Ratio 1.2 (0.9-1.6) Meds: Medications Generic Name Dose Route Start Last Admin Trade Name Freq PRN Reason Stop Dose Admin Sodium Chloride 10 ml 02/18/19 13:31 02/18/19 13:59 Saline Flush FLUSH 10 ml ASDIRECTED PRN Administration Keep Vein Open Sodium Chloride 2.5 ml 02/18/19 13:31 02/18/19 13:59 Saline Flush FLUSH 2.5 ml ASDIRECTED PRN Administration Keep Vein Open Discontinued Medications Generic Name Dose Route Start Last Admin Trade Name Freq PRN Reason Stop Dose Admin Hydromorphone HCl 1 mg 02/18/19 15:00 02/18/19 15:12 Dilaudid IVPUSH 02/18/19 15:01 1 mg ONETIME ONE Administration Iopamidol 75 ml 02/18/19 14:58 02/18/19 14:59 Isovue Multipack-370 (76%) IVPUSH 02/18/19 14:59 75 ml ONETIME STA Administration Morphine Sulfate 4 mg 02/18/19 13:31 02/18/19 13:56 Morphine IVPUSH 02/18/19 13:32 4 mg ONETIME ONE Administration Ondansetron HCl 4 mg 02/18/19 15:00 02/18/19 15:10 Zofran IVPUSH 02/18/19 15:01 4 mg ONETIME ONE Administration Departure - Departure Time of Disposition: 16:34 Disposition: Refer to Observation Condition: Good Clinical Impression: Pneumothorax, Rib fracture - Discharge Information Referrals: PCP,Unknown [Primary Care Provider] - Forms: ED Department Discharge - My Orders Last 24 Hours: My Active Orders 02/18/19 13:31 Sodium Chloride 0.9% [Saline Flush] 10 ml FLUSH ASDIRECTED PRN Sodium Chloride 0.9% [Saline Flush] 2.5 ml FLUSH ASDIRECTED PRN Saline Lock Insert [OM.PC] Stat 02/18/19 16:31 Admission Status [Patient Status] [ADT] Stat - Assessment/Plan Last 24 Hours: My Active Orders 02/18/19 13:31 Sodium Chloride 0.9% [Saline Flush] 10 ml FLUSH ASDIRECTED PRN Sodium Chloride 0.9% [Saline Flush] 2.5 ml FLUSH ASDIRECTED PRN Saline Lock Insert [OM.PC] Stat 02/18/19 16:31 Admission Status [Patient Status] [ADT] Stat
[2019-02-18] MEDS ORDERED: Morphine 4 MG/ML Syringe IVPUSH ONE (13:31)
[2019-02-18] MEDS ORDERED: Sodium Chloride 0.9% 10 ML Syringe FLUSH PRN (13:31)
[2019-02-18] MEDS ORDERED: Sodium Chloride 0.9% 2.5 ML Syringe FLUSH PRN (13:31)
[2019-02-18 14:26] LABS: BLOOD UREA NITROGEN,BUN 15 mg/dL (7.0-18.0); CARBON DIOXIDE,CO2 29.3 mmol/L (21.0-32.0); CHLORIDE,CL 100 mmol/L (98-107); GLUCOSE RANDOM 113 mg/dL (74-106); POTASSIUM,K 4.1 mmol/L (3.5-5.1); SODIUM,NA 139 mmol/L (136-148)
--- NOTE | 2019-02-18 14:52 | CR ---
Chest: Frontal view of the chest was obtained utilizing portable technique. Comparison: Prior chest x-ray of 11/29/16. Heart size and mediastinum are within normal limits for portable technique. Lungs are clear. Bony structures are grossly intact. Impression: Nothing acute is seen on portable chest x-ray. Diagnostic code #1 MTDD
[2019-02-18] MEDS ORDERED: Iopamidol 755 MG/ML 500 ML Multipack Bottle IVPUSH STA (14:58)
[2019-02-18] MEDS ORDERED: Ondansetron 4 MG/2 ML SDV IVPUSH ONE (15:00)
[2019-02-18] MEDS ORDERED: HYDROmorphone 1 MG/ML Syringe IVPUSH ONE ×2 (15:00→17:53)
--- NOTE | 2019-02-18 15:19 | CR ---
Pelvis and right hip: AP view of the pelvis was obtained as well as AP and slight frog leg lateral view of the right hip. Increased density is seen within the lower pelvis of uncertain etiology. Joint spaces are preserved. No discrete fracture or other abnormality is seen. Impression: 1. Increased density within the lower pelvis, please correlate if etiology is known. 2. AP pelvis and two-view right hip exam is otherwise unremarkable. Diagnostic code #2 MTDD
--- NOTE | 2019-02-18 16:08 | CT ---
INDICATION: Pain and shortness of breath. Fell from ladder today. Landed on concrete on right side. COMPARISON: None. TECHNIQUE: CT of the chest with IV contrast. 75 cc of Isovue-370 was administered. FINDINGS: Heart size is normal. No pericardial effusion. No lymphadenopathy in the chest. Status post cholecystectomy. Hypoattenuation of hepatic parenchyma which is suggestive of steatosis. Mild degenerative changes in the thoracic spine. Nondisplaced right lateral 7th rib fracture with adjacent right chest wall subcutaneous emphysema. Small right-sided pneumothorax. No pleural effusion. Central airways are patent. Bibasilar atelectasis. Small perifissural nodules in the right lung likely due to intrapulmonary lymph nodes. IMPRESSION: 1. Right lateral 7th rib fracture with small right pneumothorax and mild right chest wall subcutaneous emphysema. 2. Findings suggestive of hepatic steatosis. Please note that all CT scans at this facility use dose modulation, iterative reconstruction, and/or weight-based dosing when appropriate to reduce radiation dose to as low as reasonably achievable. Dictated by Jhoan Tobin MD @ Feb 18 2019 3:57PM Signed by Dr. Jhoan Tobin @ Feb 18 2019 4:06PM
[2019-02-18] MEDS ORDERED: HYDROmorphone 1 MG/ML Syringe IVPUSH PRN (16:40)
[2019-02-18] MEDS ORDERED: Ondansetron 4 MG/2 ML SDV IVPUSH PRN ×2 (16:45→18:57)
[2019-02-18] MEDS: Dextrose 5%-0.45% NaCl 1,000 ML IV SCH (17:47)
[2019-02-18] MEDS ORDERED: Naloxone 0.4 MG/ML Syringe IVPUSH PRN (18:57)
[2019-02-18] MEDS ORDERED: diphenhydrAMINE 50 MG/ML SDV IVPUSH PRN (18:57)
[2019-02-18] MEDS ORDERED: diphenhydrAMINE 25 MG Cap PO PRN (18:57)
--- NOTE | 2019-02-18 19:07 | PCM.HP.2 ---
H&P History of Present Illness - General Date of Service: 02/18/19 Admit Problem/Dx: Admission Diagnosis/Problem Admission Diagnosis/Problem Pneumothorax fx right 7th rib Source of Information: Patient History Limitations: Reports: No Limitations - History of Present Illness Initial Comments - Free Text/Narative: Patient is a 38-year-old gentleman who fell off a ladder earlier today. He states the ladder wasn't quite squared up and it tipped causing him to fall 12- 14 feet landing on concrete. He immediately had chest pain and shortness of breath and presented to the emergency room. Upon evaluation he was found have a small pneumothorax on CT scan with a right seventh rib fracture. He is being admitted for pain control and follow-up of his pneumothorax. Onset of Symptoms: Reports: Today Duration of Symptoms: Reports: Hour(s): Location: Reports: Chest Quality: Reports: Ache, Stabbing Severity: Moderate Improves with: Reports: Rest Worsens with: Reports: Breathing, Movement Context: Reports: Trauma Associated Symptoms: Reports: Chest Pain. Denies: Confusion, Cough, cough w sputum, Fever/Chills, Headaches Right Ribcage Pain Score (Numeric/FACES): 10 - Related Data Allergies/Adverse Reactions: Allergies Allergy/AdvReac Type Severity Reaction Status Date / Time No Known Allergies Allergy Verified 02/18/19 13:15 Home Medications: Home Meds Cyclobenzaprine [Flexeril] 10 mg PO TID PRN #30 tab 12/28/17 [Rx] Past Medical History - Past Health History Medical/Surgical History: Denies Medical/Surgical History HEENT History: Reports: Impaired Vision, Other (See Below) Other HEENT History: wears glasses Cardiovascular History: Reports: None Respiratory History: Reports: None Gastrointestinal History: Reports: Cholelithiasis Genitourinary History: Reports: None Musculoskeletal History: Reports: None Neurological History: Reports: None Psychiatric History: Reports: None Endocrine/Metabolic History: Reports: None Hematologic History: Reports: None Immunologic History: Reports: None Oncologic (Cancer) History: Reports: None Dermatologic History: Reports: None - Infectious Disease History Infectious Disease History: Reports: Chicken Pox - Past Surgical History HEENT Surgical History: Reports: None GI Surgical History: Reports: Cholecystectomy Social & Family History - Family History Family Medical History: Noncontributory - Tobacco Use Smoking Status *Q: Current Every Day Smoker Years of Tobacco use: 20 Packs/Tins Daily: 1 - Caffeine Use Caffeine Use: Reports: Energy Drinks, Soda - Recreational Drug Use Recreational Drug Use: No H&P Review of Systems - Review of Systems: Review Of Systems: See Below General: Denies: Fever, Chills, Malaise, Weakness, Fatigue HEENT: Reports: No Symptoms Pulmonary: Reports: Shortness of Breath. Denies: Wheezing, Pleuritic Chest Pain , Cough, Sputum, Hemoptysis Cardiovascular: Reports: Chest Pain, Dyspnea on Exertion. Denies: Palpitations , Orthopnea, PND, Edema, Lightheadedness, Syncope Gastrointestinal: Denies: Abdominal Pain, Anorexia, Constipation, Diarrhea, Decreased Appetite, Nausea, Vomiting Genitourinary: Denies: Dysuria, Frequency, Burning, Pain, Urgency Musculoskeletal: Denies: Neck Pain, Shoulder Pain Skin: Denies: Cyanosis, Jaundice, Mottled, Pallor, Diaphoresis Psychiatric: Denies: Confusion, Depression Neurological: Reports: No Symptoms Hematologic/Lymphatic: Reports: No Symptoms Immunologic: Reports: No Symptoms Exam - Exam Exam: See Below - Vital Signs Vital Signs: Last Vital Signs Temp 97.1 F 02/18/19 16:53 Pulse 82 02/18/19 17:20 Resp 18 02/18/19 17:20 BP 145/80 H 02/18/19 17:20 Pulse Ox 94 L 02/18/19 17:20 Weight: 328 lb 14.875 oz - Exam Quality Assessment: Supplemental Oxygen, DVT Prophylaxis General: Alert, Oriented, Cooperative, Mild Distress HEENT: Conjunctiva Clear, EACs Clear, Pupils Equal, Pupils Reactive. No: Scleral Icterus Neck: Supple, Trachea Midline, +2 Carotid Pulse wo Bruit Lungs: Clear to Auscultation, Normal Respiratory Effort. No: Decreased Breath Sounds, Crackles, Rales, Rhonchi, Rub, Stridor, Wheezing Cardiovascular: Regular Rate, Regular Rhythm, Normal S1, Normal S2. No: Tachycardia, Systolic Murmur GI/Abdominal Exam: Normal Bowel Sounds, Soft, Non-Tender (Male) Exam: No Hernia Rectal (Males) Exam: Deferred Back Exam: Normal Inspection Extremities: Normal Inspection, Normal Range of Motion Skin: Warm, Dry, Intact Neurological: Cranial Nerves Intact Psychiatric: Alert, Normal Affect, Normal Mood - Patient Data Lab Results Last 24 hrs: Laboratory Results - last 24 hr 02/18/19 02/18/19 Range/Units 13:55 13:55 WBC 13.16 H (4.0-11.0) K/uL RBC 5.31 (4.50-5.90) M/uL Hgb 16.5 (13.0-17.0) g/dL Hct 47.4 (38.0-50.0) % MCV 89.3 (80.0-98.0) fL MCH 31.1 (27.0-32.0) pg MCHC 34.8 (31.0-37.0) g/dL RDW Std Deviation 43.2 (28.0-62.0) fl RDW Coeff of Hernandez 13 (11.0-15.0) % Plt Count 159 (150-400) K/uL MPV 10.10 (7.40-12.00) fL Neut % (Auto) 75.4 (48.0-80.0) % Lymph % (Auto) 17.4 (16.0-40.0) % [place] % (Auto) 6.2 (0.0-15.0) % Eos % (Auto) 0.8 (0.0-7.0) % Baso % (Auto) 0.2 (0.0-1.5) % Neut # (Auto) 9.9 H (1.4-5.7) K/uL Lymph # (Auto) 2.3 (0.6-2.4) K/uL [place] # (Auto) 0.8 (0.0-0.8) K/uL Eos # (Auto) 0.1 (0.0-0.7) K/uL Baso # (Auto) 0.0 (0.0-0.1) K/uL Nucleated RBC % 0.0 /100WBC Nucleated RBCs # 0 K/uL Sodium 139 (136-148) mmol/L Potassium 4.1 (3.5-5.1) mmol/L Chloride 100 (98-107) mmol/L Carbon Dioxide 29.3 (21.0-32.0) mmol/L BUN 15 (7.0-18.0) mg/dL Creatinine 1.1 (0.8-1.3) mg/dL Est Cr Clr Drug Dosing 94.94 mL/min Estimated GFR (MDRD) > 60.0 ml/min Glucose 113 H (74-106) mg/dL Calcium 9.5 (8.5-10.1) mg/dL Total Bilirubin 0.3 (0.2-1.0) mg/dL AST 35 (15-37) IU/L ALT 51 (14-63) IU/L Alkaline Phosphatase 89 (46-116) U/L Total Protein 7.9 (6.4-8.2) g/dL Albumin 4.3 (3.4-5.0) g/dL Globulin 3.6 (2.6-4.0) g/dL Albumin/Globulin Ratio 1.2 (0.9-1.6) Result Diagrams: 02/18/19 13:55 02/18/19 13:55 - Problem List (1) Fall from height of greater than 3 feet SNOMED Code(s): 3637669 ICD Code: W17.89XA - OTHER FALL FROM ONE LEVEL TO ANOTHER, INITIAL ENCOUNTER Status: Acute Priority: High Current Visit: Yes Onset Date: ~02/18/19 (2) Pneumothorax SNOMED Code(s): 13302539 ICD Code: J93.9 - PNEUMOTHORAX, UNSPECIFIED Status: Acute Priority: High Current Visit: Yes Onset Date: ~02/18/19 Qualifiers: Pneumothorax type: traumatic Encounter type: initial encounter Qualified Code(s): S27.0XXA - Traumatic pneumothorax, initial encounter (3) Rib fracture SNOMED Code(s): 16319751 ICD Code: S22.39XA - FRACTURE OF ONE RIB, UNSP SIDE, INIT FOR CLOS FX Status: Acute Priority: High Current Visit: Yes Qualifiers: Encounter type: initial encounter Rib fracture type: single rib Fracture type: closed Laterality: right Qualified Code(s): S22.31XA - Fracture of one rib, right side, initial encounter for closed fracture Problem List Initiated/Reviewed/Updated: Yes Orders Last 24hrs: Active Orders 24 hr Category Date Time Status Admission Status [Patient Status] [ADT] Stat ADT 02/18/19 16:31 Active Antiembolic Devices [RC] PER UNIT ROUTINE Care 02/18/19 19:01 Ordered Bedrest [RC] ASDIRECTED Care 02/18/19 16:43 Active Communication Order [RC] PER UNIT ROUTINE Care 02/18/19 18:59 Ordered Oxygen Therapy [RC] PRN Care 02/18/19 19:01 Ordered SAFETY SITTER Record [RC] Q4H Care 02/18/19 18:59 Ordered Pulse Oximetry [RC] INTERMITTENT Care 02/18/19 19:01 Ordered RT Incentive Spirometry [RC] Q1HWA Care 02/18/19 19:01 Ordered Up ad Abril [RC] ASDIRECTED Care 02/18/19 19:01 Ordered Vital Signs [RC] PER UNIT ROUTINE Care 02/18/19 18:59 Ordered Vital Signs [RC] PER UNIT ROUTINE Care 02/18/19 19:01 Ordered Vital Signs [RC] Q4H Care 02/18/19 16:36 Active Nothing Per Oral Diet [DIET] Diet 02/19/19 Breakfast Active Regular Diet [DIET] Diet 02/18/19 Dinner Ordered Chest 2V [CR] Stat Exams 02/18/19 20:25 Ordered Chest 2V [CR] Stat Exams 02/19/19 07:00 Ordered Cyclobenzaprine [Flexeril] Med 02/18/19 22:00 Ordered 10 mg PO TID Dextrose 5%-0.45% NaCl [Dextrose 5%-1/2 NS] 1,000 ml Med 02/18/19 16:45 Active IV ASDIRECTED Morphine PF [Morphine SAFETY SITTER 30 MG in 30 ML] Med 02/18/19 19:00 Ordered See Protocol IV ASDIRECTED Naloxone [Narcan] Med 02/18/19 18:57 Ordered 0.04 mg IVPUSH Q3M PRN Ondansetron [Zofran] Med 02/18/19 16:45 Active 4 mg IVPUSH Q6H PRN Ondansetron [Zofran] Med 02/18/19 18:57 Ordered 4 mg IVPUSH Q6H PRN Sodium Chloride 0.9% [Saline Flush] Med 02/18/19 13:31 Active 10 ml FLUSH ASDIRECTED PRN Sodium Chloride 0.9% [Saline Flush] Med 02/18/19 13:31 Active 2.5 ml FLUSH ASDIRECTED PRN diphenhydrAMINE [Benadryl] Med 02/18/19 18:57 Ordered 25 mg IVPUSH Q6H PRN diphenhydrAMINE [Benadryl] Med 02/18/19 18:57 Ordered 25 mg PO Q6H PRN Saline Lock Insert [OM.PC] Stat Oth 02/18/19 13:31 Ordered Sequential Compression Device [OM.PC] Routine Oth 02/18/19 19:01 Ordered Resuscitation Status Routine Resus Stat 02/18/19 19:01 Ordered Medication Orders Dextrose/Sodium Chloride (Dextrose 5%-1/2 Ns) 1,000 mls @ 150 mls/hr IV ASDIRECTED [facility]I Last Admin: 02/18/19 17:47 Dose: 150 mls/hr Ondansetron HCl (Zofran) 4 mg IVPUSH Q6H PRN PRN Reason: Nausea/Vomiting Sodium Chloride (Saline Flush) 10 ml FLUSH ASDIRECTED PRN PRN Reason: Keep Vein Open Last Admin: 02/18/19 13:59 Dose: 10 ml Sodium Chloride (Saline Flush) 2.5 ml FLUSH ASDIRECTED PRN PRN Reason: Keep Vein Open Last Admin: 02/18/19 13:59 Dose: 2.5 ml Assessment/Plan Comment:: IS q1h while awake. Supplemental O2 as needed. Up in chair and ambulate. KAELA. CXR ordered. Morphine SAFETY SITTER for pain control tonight. Will try and transition to po tomorrow. Flexeril for pain control. - Mortality Measure Prognosis:: Good
[2019-02-18] MEDS: Morphine PF 30 MG/30 ML PCA Vial IV SCH (20:58)
--- NOTE | 2019-02-18 21:09 | CR ---
INDICATION : Trauma. Small right pneumothorax. Right lateral 7th rib fracture. Followup. TECHNIQUE: Inspiratory and expiratory upright AP chest x-ray. COMPARISON: AP chest x-ray performed earlier on the same date at 2:32 p.m. FINDINGS: The expiratory chest x-ray clearly demonstrates a small right apical lateral pneumothorax. This is less evident on the inspiratory chest x-ray. No mediastinal shift. Clear left lung. Normal heart size. The right 7th rib fracture is better appreciated on the CT. IMPRESSION : Small right-sided pneumothorax best appreciated on the expiratory chest x-ray. No mediastinal shift. Dictated by Donnell Brink MD @ Feb 18 2019 8:52PM Signed by Dr. Donnell Brink @ Feb 18 2019 9:07PM
[2019-02-18] MEDS: Cyclobenzaprine 10 MG Tab PO SCH (22:04)
[2019-02-19] MEDS: Dextrose 5%-0.45% NaCl 1,000 ML IV SCH ×4 (00:44→21:44)
[2019-02-19] MEDS: Cyclobenzaprine 10 MG Tab PO SCH ×4 (05:37→21:44)
--- NOTE | 2019-02-19 07:10 | CR ---
INDICATION: Pneumothorax TECHNIQUE: Chest AP inspiratory and expiratory 2 views COMPARISON: 02/18/2019 FINDINGS: Cardiovascular and mediastinum: Heart size and vasculature are normal in caliber and appearance. Lungs and pleural spaces: Right apical pneumothorax has increased in size. Remainder of the lungs and pleural spaces are clear. Bones and soft tissues: No significant findings. IMPRESSION: Right apical pneumothorax has increased in size and comprises approximately 20 percent of the right lung volume. Dictated by Bassam Barnhart MD @ Feb 19 2019 7:04AM Signed by Dr. Bassam Barnhart @ Feb 19 2019 7:08AM
[2019-02-19] MEDS: Morphine PF 30 MG/30 ML PCA Vial IV SCH (08:57)
--- NOTE | 2019-02-19 09:21 | PCM.PN ---
- General Info Date of Service: 02/19/19 Subjective Update: Patient has had a good night. Feels like his pain is being fairly well controlled. No new complaints of shortness of breath. No productive cough. Functional Status: Reports: Pain Controlled, Tolerating Diet - Review of Systems General: Denies: Fever, Weakness, Fatigue, Malaise HEENT: Reports: No Symptoms Pulmonary: Reports: Shortness of Breath, Cough, Wheezing. Denies: Sputum, Hemoptysis Cardiovascular: Reports: Chest Pain (right rib pain) Gastrointestinal: Denies: Abdominal Pain, Constipation, Decreased Appetite Genitourinary: Denies: Dysuria, Frequency, Burning Musculoskeletal: Denies: Neck Pain, Shoulder Pain Skin: Denies: Cyanosis, Jaundice, Mottled Neurological: Denies: Confusion, Dizziness Psychiatric: Denies: Confusion, Depression - Patient Data Vitals - Most Recent: Last Vital Signs Temp 96.1 F 02/19/19 08:00 Pulse 66 02/19/19 08:00 Resp 12 02/19/19 08:00 BP 138/78 02/19/19 08:00 Pulse Ox 95 02/19/19 08:00 Weight - Most Recent: 328 lb 14.875 oz I&O - Last 24 Hours: Intake & Output 02/18/19 02/19/19 02/19/19 19:59 03:59 11:59 Intake Total 1753 Output Total 250 Balance 1503 Lab Results Last 24 Hours: Laboratory Results - last 24 hr 02/18/19 02/18/19 Range/Units 13:55 13:55 WBC 13.16 H (4.0-11.0) K/uL RBC 5.31 (4.50-5.90) M/uL Hgb 16.5 (13.0-17.0) g/dL Hct 47.4 (38.0-50.0) % MCV 89.3 (80.0-98.0) fL MCH 31.1 (27.0-32.0) pg MCHC 34.8 (31.0-37.0) g/dL RDW Std Deviation 43.2 (28.0-62.0) fl RDW Coeff of Hernandez 13 (11.0-15.0) % Plt Count 159 (150-400) K/uL MPV 10.10 (7.40-12.00) fL Neut % (Auto) 75.4 (48.0-80.0) % Lymph % (Auto) 17.4 (16.0-40.0) % [place] % (Auto) 6.2 (0.0-15.0) % Eos % (Auto) 0.8 (0.0-7.0) % Baso % (Auto) 0.2 (0.0-1.5) % Neut # (Auto) 9.9 H (1.4-5.7) K/uL Lymph # (Auto) 2.3 (0.6-2.4) K/uL [place] # (Auto) 0.8 (0.0-0.8) K/uL Eos # (Auto) 0.1 (0.0-0.7) K/uL Baso # (Auto) 0.0 (0.0-0.1) K/uL Nucleated RBC % 0.0 /100WBC Nucleated RBCs # 0 K/uL Sodium 139 (136-148) mmol/L Potassium 4.1 (3.5-5.1) mmol/L Chloride 100 (98-107) mmol/L Carbon Dioxide 29.3 (21.0-32.0) mmol/L BUN 15 (7.0-18.0) mg/dL Creatinine 1.1 (0.8-1.3) mg/dL Est Cr Clr Drug Dosing 94.94 mL/min Estimated GFR (MDRD) > 60.0 ml/min Glucose 113 H (74-106) mg/dL Calcium 9.5 (8.5-10.1) mg/dL Total Bilirubin 0.3 (0.2-1.0) mg/dL AST 35 (15-37) IU/L ALT 51 (14-63) IU/L Alkaline Phosphatase 89 (46-116) U/L Total Protein 7.9 (6.4-8.2) g/dL Albumin 4.3 (3.4-5.0) g/dL Globulin 3.6 (2.6-4.0) g/dL Albumin/Globulin Ratio 1.2 (0.9-1.6) Med Orders - Current: Current Medications Cyclobenzaprine HCl (Flexeril) 10 mg PO TID [facility] Last Admin: 02/19/19 05:37 Dose: Not Given Diphenhydramine HCl (Benadryl) 25 mg IVPUSH Q6H PRN PRN Reason: Itching Diphenhydramine HCl (Benadryl) 25 mg PO Q6H PRN PRN Reason: Itching Dextrose/Sodium Chloride (Dextrose 5%-1/2 Ns) 1,000 mls @ 150 mls/hr IV ASDIRECTED [facility] Last Admin: 02/19/19 07:29 Dose: 150 mls/hr Morphine Sulfate (Morphine Combination Presser 30 Mg In 30 Ml) 0 mg IV ASDIRECTED [facility]; Protocol Last Admin: 02/19/19 08:57 Dose: 30 mg Naloxone HCl (Narcan) 0.04 mg IVPUSH Q3M PRN PRN Reason: Respiratory Depression Ondansetron HCl (Zofran) 4 mg IVPUSH Q6H PRN PRN Reason: Nausea/Vomiting Ondansetron HCl (Zofran) 4 mg IVPUSH Q6H PRN PRN Reason: Nausea/Vomiting Sodium Chloride (Saline Flush) 10 ml FLUSH ASDIRECTED PRN PRN Reason: Keep Vein Open Last Admin: 02/18/19 13:59 Dose: 10 ml Sodium Chloride (Saline Flush) 2.5 ml FLUSH ASDIRECTED PRN PRN Reason: Keep Vein Open Last Admin: 02/18/19 13:59 Dose: 2.5 ml Discontinued Medications Hydromorphone HCl (Dilaudid) 1 mg IVPUSH ONETIME ONE Stop: 02/18/19 15:01 Last Admin: 02/18/19 15:12 Dose: 1 mg Hydromorphone HCl (Dilaudid) 1 mg IVPUSH Q6H PRN PRN Reason: Pain Hydromorphone HCl (Dilaudid) 1 mg IVPUSH ONETIME ONE Stop: 02/18/19 17:54 Last Admin: 02/18/19 18:23 Dose: 1 mg Iopamidol (Isovue Multipack-370 (76%)) 75 ml IVPUSH ONETIME STA Stop: 02/18/19 14:59 Last Admin: 02/18/19 14:59 Dose: 75 ml Morphine Sulfate (Morphine) 4 mg IVPUSH ONETIME ONE Stop: 02/18/19 13:32 Last Admin: 02/18/19 13:56 Dose: 4 mg Ondansetron HCl (Zofran) 4 mg IVPUSH ONETIME ONE Stop: 02/18/19 15:01 Last Admin: 02/18/19 15:10 Dose: 4 mg - Exam Quality Assessment: No: Supplemental Oxygen (RA SaO2 92-93%) General: Alert, Oriented, Cooperative, Mild Distress HEENT: Pupils Equal, Pupils Reactive, EOMI Neck: Supple, Trachea Midline, No JVD Lungs: Clear to Auscultation (breath sounds symmetrical although distant), Wheezing. No: Crackles, Rales, Rhonchi, Stridor Cardiovascular: Regular Rate, Regular Rhythm GI/Abdominal Exam: Normal Bowel Sounds, Soft, Non-Tender (Male) Exam: Deferred Back Exam: Normal Inspection, Full Range of Motion Extremities: Normal Inspection, Normal Range of Motion, Non-Tender, No Pedal Edema, Normal Capillary Refill Skin: Warm, Dry, Intact Neurological: No New Focal Deficit Psy/Mental Status: Alert, Normal Affect, Normal Mood - Problem List & Annotations (1) Fall from height of greater than 3 feet SNOMED Code(s): 2087420 Code(s): W17.89XA - OTHER FALL FROM ONE LEVEL TO ANOTHER, INITIAL ENCOUNTER Status: Acute Priority: High Current Visit: Yes Onset Date: ~02/18/19 (2) Pneumothorax SNOMED Code(s): 12144541 Code(s): J93.9 - PNEUMOTHORAX, UNSPECIFIED Status: Acute Priority: High Current Visit: Yes Onset Date: ~02/18/19 Qualifiers: Pneumothorax type: traumatic Encounter type: initial encounter Qualified Code(s): S27.0XXA - Traumatic pneumothorax, initial encounter (3) Rib fracture SNOMED Code(s): 04750578 Code(s): S22.39XA - FRACTURE OF ONE RIB, UNSP SIDE, INIT FOR CLOS FX Status : Acute Priority: High Current Visit: Yes Qualifiers: Encounter type: initial encounter Rib fracture type: single rib Fracture type: closed Laterality: right Qualified Code(s): S22.31XA - Fracture of one rib, right side, initial encounter for closed fracture - Problem List Review Problem List Initiated/Reviewed/Updated: Yes - My Orders Last 24 Hours: My Active Orders 02/18/19 16:36 Vital Signs [RC] Q4H 02/18/19 16:43 Bedrest [RC] ASDIRECTED 02/18/19 16:45 Dextrose 5%-0.45% NaCl [Dextrose 5%-1/2 NS] 1,000 ml IV ASDIRECTED Ondansetron [Zofran] 4 mg IVPUSH Q6H PRN 02/18/19 18:57 Naloxone [Narcan] 0.04 mg IVPUSH Q3M PRN Ondansetron [Zofran] 4 mg IVPUSH Q6H PRN diphenhydrAMINE [Benadryl] 25 mg IVPUSH Q6H PRN diphenhydrAMINE [Benadryl] 25 mg PO Q6H PRN 02/18/19 18:59 Communication Order [RC] PER UNIT ROUTINE OBSTETRICS SPECIALIST Record [RC] Q4H Vital Signs [RC] PER UNIT ROUTINE 02/18/19 19:00 Morphine PF [Morphine OBSTETRICS SPECIALIST 30 MG in 30 ML] See Protocol IV ASDIRECTED 02/18/19 19:01 Antiembolic Devices [RC] PER UNIT ROUTINE Oxygen Therapy [RC] PRN Pulse Oximetry [RC] INTERMITTENT RT Incentive Spirometry [RC] Q1HWA Up ad Abril [RC] ASDIRECTED Vital Signs [RC] PER UNIT ROUTINE Sequential Compression Device [OM.PC] Routine Resuscitation Status Routine 02/18/19 22:00 Cyclobenzaprine [Flexeril] 10 mg PO TID 02/19/19 10:30 Chest 2V [CR] Routine 02/19/19 Breakfast Nothing Per Oral Diet [DIET] - Assessment Assessment:: Patient has been stable through the night. Right pneumothorax has increased to ~20% although clinically patient is unchanged. Room air SaO2 in my presence this morning was 92-93%. - Plan Plan:: Repeat CXR at 10:30. Might consider repeat CT scan but patient may need a chest tube.
--- NOTE | 2019-02-19 10:46 | CR ---
CHEST 1 VIEW AP INDICATION: Right pneumothorax. Inspiration expiration COMPARISON: 02/19/2019 6:49 a.m. IMPRESSION: Stable right pneumothorax FINDINGS: Small apical pneumothorax suggested on the expiratory view. This is difficult to optimally evaluate given the technique but appears similar to prior exam and measures about 4.3 cm. There is no shift of the mediastinum. No other significant change. Dictated by Marcelo Hernandez MD @ Feb 19 2019 10:42AM Signed by Dr. Marcelo Hernandez @ Feb 19 2019 10:44AM
--- NOTE | 2019-02-19 12:08 | CR ---
INDICATION: Pneumothorax COMPARISON: Portable chest dated 02/18/2019 TECHNIQUE: Portable AP erect inspiration and expiration chest performed at 10:46 a.m. FINDINGS: There is a small right pneumothorax best appreciated on the expiratory view. There is no evidence of significant vascular displacement or mediastinal shift. The lungs appear clear. The heart and pulmonary vessels are within normal range in size. IMPRESSION: Stable small right pneumothorax. Dictated by Gil Morgan MD @ Feb 19 2019 12:02PM Signed by Dr. Gil Morgan @ Feb 19 2019 12:05PM
[2019-02-19] MEDS ORDERED: Ondansetron 4 MG/2 ML SDV IVPUSH PRN (13:05)
[2019-02-19] MEDS ORDERED: fentaNYL 100 MCG/2 ML SDV IVPUSH PRN (13:05)
--- NOTE | 2019-02-19 13:05 | PCM.PREANE ---
Preanesthetic Assessment - Anesthesia/Transfusion/Family Hx Anesthesia History: Prior Anesthesia Without Reaction Transfusion History: No Prior Transfusion(s) Intubation History: Unknown - Review of Systems General: No Symptoms Pulmonary: Shortness of Breath (on nasal cannula ), Cough Gastrointestinal: No Symptoms Neurological: No Symptoms Other: Reports: None - Physical Assessment NPO Status Date: 02/19/19 (vin) NPO Status Time: 07:00 Vital Signs: Last Vital Signs Temp 36.0 C 02/19/19 11:55 Pulse 71 02/19/19 11:55 Resp 15 02/19/19 11:55 BP 126/54 L 02/19/19 11:55 Pulse Ox 95 02/19/19 11:55 Height: 1.8 m Weight: 149.2 kg ASA Class: 3 Mental Status: Alert & Oriented x3 Dentition: Reports: Broken Tooth/Teeth (right upper center tooth), Caries ( multiple dental caries or tobacco stained teeth) Thyro-Mental Finger Breadths: 3 Mouth Opening Finger Breadths: 3 ROM/Head Extension: Full Lungs: Clear to Auscultation, Normal Respiratory Effort Cardiovascular: Regular Rate, Regular Rhythm - Lab Values: Laboratory Last Values WBC 13.16 K/uL (4.0-11.0) H 02/18/19 13:55 RBC 5.31 M/uL (4.50-5.90) 02/18/19 13:55 Hgb 16.5 g/dL (13.0-17.0) 02/18/19 13:55 Hct 47.4 % (38.0-50.0) 02/18/19 13:55 MCV 89.3 fL (80.0-98.0) 02/18/19 13:55 MCH 31.1 pg (27.0-32.0) 02/18/19 13:55 MCHC 34.8 g/dL (31.0-37.0) 02/18/19 13:55 RDW Std Deviation 43.2 fl (28.0-62.0) 02/18/19 13:55 RDW Coeff of Hernandez 13 % (11.0-15.0) 02/18/19 13:55 Plt Count 159 K/uL (150-400) 02/18/19 13:55 MPV 10.10 fL (7.40-12.00) 02/18/19 13:55 Neut % (Auto) 75.4 % (48.0-80.0) 02/18/19 13:55 Lymph % (Auto) 17.4 % (16.0-40.0) 02/18/19 13:55 [place] % (Auto) 6.2 % (0.0-15.0) 02/18/19 13:55 Eos % (Auto) 0.8 % (0.0-7.0) 02/18/19 13:55 Baso % (Auto) 0.2 % (0.0-1.5) 02/18/19 13:55 Neut # (Auto) 9.9 K/uL (1.4-5.7) H 02/18/19 13:55 Lymph # (Auto) 2.3 K/uL (0.6-2.4) 02/18/19 13:55 [place] # (Auto) 0.8 K/uL (0.0-0.8) 02/18/19 13:55 Eos # (Auto) 0.1 K/uL (0.0-0.7) 02/18/19 13:55 Baso # (Auto) 0.0 K/uL (0.0-0.1) 02/18/19 13:55 Nucleated RBC % 0.0 /100WBC 02/18/19 13:55 Nucleated RBCs # 0 K/uL 02/18/19 13:55 Sodium 139 mmol/L (136-148) 02/18/19 13:55 Potassium 4.1 mmol/L (3.5-5.1) 02/18/19 13:55 Chloride 100 mmol/L (98-107) 02/18/19 13:55 Carbon Dioxide 29.3 mmol/L (21.0-32.0) 02/18/19 13:55 BUN 15 mg/dL (7.0-18.0) 02/18/19 13:55 Creatinine 1.1 mg/dL (0.8-1.3) 02/18/19 13:55 Est Cr Clr Drug Dosing 94.94 mL/min 02/18/19 13:55 Estimated GFR (MDRD) > 60.0 ml/min 02/18/19 13:55 Glucose 113 mg/dL (74-106) H 02/18/19 13:55 Calcium 9.5 mg/dL (8.5-10.1) 02/18/19 13:55 Total Bilirubin 0.3 mg/dL (0.2-1.0) 02/18/19 13:55 AST 35 IU/L (15-37) 02/18/19 13:55 ALT 51 IU/L (14-63) 02/18/19 13:55 Alkaline Phosphatase 89 U/L (46-116) 02/18/19 13:55 Total Protein 7.9 g/dL (6.4-8.2) 02/18/19 13:55 Albumin 4.3 g/dL (3.4-5.0) 02/18/19 13:55 Globulin 3.6 g/dL (2.6-4.0) 02/18/19 13:55 Albumin/Globulin Ratio 1.2 (0.9-1.6) 02/18/19 13:55 - Allergies Allergies/Adverse Reactions: Allergies Allergy/AdvReac Type Severity Reaction Status Date / Time No Known Allergies Allergy Verified 02/18/19 13:15 - Acknowledgements Anesthesia Type Planned: MAC Pt an Appropriate Candidate for the Planned Anesthesia: Yes Alternatives and Risks of Anesthesia Discussed w Pt/Guardian: Yes Pt/Guardian Understands and Agrees with Anesthesia Plan: Yes PreAnesthesia Questionnaire - Past Health History Medical/Surgical History: Denies Medical/Surgical History HEENT History: Reports: Impaired Vision, Other (See Below) Other HEENT History: wears glasses Cardiovascular History: Reports: None Respiratory History: Reports: Sleep Apnea (probable ARIADNE,), Other (See Below) ( chronic tobacco use for 20 years) Gastrointestinal History: Reports: GERD (controlled with over the counter medications) Genitourinary History: Reports: None Musculoskeletal History: Reports: None Neurological History: Reports: None Psychiatric History: Reports: None Endocrine/Metabolic History: Reports: Obesity/BMI 30+ (morbid obesity) Hematologic History: Reports: None Immunologic History: Reports: None Oncologic (Cancer) History: Reports: None Dermatologic History: Reports: None - Infectious Disease History Infectious Disease History: Reports: Chicken Pox - Past Surgical History HEENT Surgical History: Reports: None GI Surgical History: Reports: Cholecystectomy - SUBSTANCE USE Smoking Status *Q: Current Every Day Smoker (fort 20 years) Tobacco Use Within Last Twelve Months: Cigarettes Days Per Week of Alcohol Use: 0 Recreational Drug Use History: No - HOME MEDS Home Medications: Home Meds Cyclobenzaprine [Flexeril] 10 mg PO TID PRN #30 tab 12/28/17 [Rx] - CURRENT (IN HOUSE) MEDS Current Meds: Current Medications Cyclobenzaprine HCl (Flexeril) 10 mg PO TID [facility] Last Admin: 02/19/19 05:37 Dose: Not Given Diphenhydramine HCl (Benadryl) 25 mg IVPUSH Q6H PRN PRN Reason: Itching Diphenhydramine HCl (Benadryl) 25 mg PO Q6H PRN PRN Reason: Itching Dextrose/Sodium Chloride (Dextrose 5%-1/2 Ns) 1,000 mls @ 150 mls/hr IV ASDIRECTED [facility] Last Admin: 02/19/19 07:29 Dose: 150 mls/hr Morphine Sulfate (Morphine Reinstatement Clerk 30 Mg In 30 Ml) 0 mg IV ASDIRECTED [facility]; Protocol Last Admin: 02/19/19 08:57 Dose: 30 mg Naloxone HCl (Narcan) 0.04 mg IVPUSH Q3M PRN PRN Reason: Respiratory Depression Ondansetron HCl (Zofran) 4 mg IVPUSH Q6H PRN PRN Reason: Nausea/Vomiting Ondansetron HCl (Zofran) 4 mg IVPUSH Q6H PRN PRN Reason: Nausea/Vomiting Sodium Chloride (Saline Flush) 10 ml FLUSH ASDIRECTED PRN PRN Reason: Keep Vein Open Last Admin: 02/18/19 13:59 Dose: 10 ml Sodium Chloride (Saline Flush) 2.5 ml FLUSH ASDIRECTED PRN PRN Reason: Keep Vein Open Last Admin: 02/18/19 13:59 Dose: 2.5 ml Discontinued Medications Hydromorphone HCl (Dilaudid) 1 mg IVPUSH ONETIME ONE Stop: 02/18/19 15:01 Last Admin: 02/18/19 15:12 Dose: 1 mg Hydromorphone HCl (Dilaudid) 1 mg IVPUSH Q6H PRN PRN Reason: Pain Hydromorphone HCl (Dilaudid) 1 mg IVPUSH ONETIME ONE Stop: 02/18/19 17:54 Last Admin: 02/18/19 18:23 Dose: 1 mg Iopamidol (Isovue Multipack-370 (76%)) 75 ml IVPUSH ONETIME STA Stop: 02/18/19 14:59 Last Admin: 02/18/19 14:59 Dose: 75 ml Morphine Sulfate (Morphine) 4 mg IVPUSH ONETIME ONE Stop: 02/18/19 13:32 Last Admin: 02/18/19 13:56 Dose: 4 mg Ondansetron HCl (Zofran) 4 mg IVPUSH ONETIME ONE Stop: 02/18/19 15:01 Last Admin: 02/18/19 15:10 Dose: 4 mg
[2019-02-19] MEDS ORDERED: Lidocaine 1% with EPINEPHrine 1:100,000 20 ML MDV ONE (13:09)
[2019-02-19] MEDS ORDERED: Propofol 200 MG/20 ML SDV ONE ×2 (13:15→13:18)
[2019-02-19] MEDS ORDERED: Midazolam 1 MG/ML 2 ML SDV ONE (13:15)
[2019-02-19] MEDS ORDERED: Ketamine 500 mg/10 ML MDV ONE (13:15)
--- NOTE | 2019-02-19 13:16 | PCM.SN ---
- Free Text/Narrative Note: Pneumothorax remains 20-25% in size. No hemothorax. Plan for right closed tube thoracostomy today. Operative procedure, along with the risks, including, but not limited to bleeding, infection, worsening pneumothorax reviewed with the patient. He states he understands, offers no questions and wishes to proceed.
[2019-02-19] MEDS ORDERED: Bupivacaine 0.5% 10 ML SDV ONE (13:18)
[2019-02-19] MEDS ORDERED: Lidocaine 1% 20 ML MDV ONE (14:13)
[2019-02-19] MEDS ORDERED: Esmolol 100 MG/10 ML SDV ONE (14:24)
[2019-02-19] MEDS ORDERED: Albuterol 6.7 GM Inhaler INH ONE (14:29)
--- NOTE | 2019-02-19 14:47 | PCM.OPNOTE ---
- General Post-Op/Procedure Note Date of Surgery/Procedure: 02/19/19 Operative Procedure(s): Right closed tube thoracostomy Pre Op Diagnosis: Traumatic right pneumothorax Post-Op Diagnosis: Traumatic right pneumothorax Anesthesia Technique: MAC (ASA III) Primary Surgeon: Jasiel Schultz Fluid Replacement, Intraop: 700 Drain/Tube Comments:: 24 [place] chest tube Condition: Stable Free Text/Narrative:: Intake & Output 02/19/19 02/19/19 02/19/19 03:59 11:59 19:59 Intake Total 1753 Output Total 250 Balance 1503 DICTATION [id number] CPT CODE 89191
[2019-02-19] MEDS ORDERED: Albuterol/Ipratropium 3.0-0.5 MG/3 ML Neb Soln NEB ONE (14:50)
--- NOTE | 2019-02-19 15:29 | CR ---
INDICATION: Chest tube placement. COMPARISON: 02/19/2019. TECHNIQUE: Single view of the chest. FINDINGS: Right-sided chest tube with tip in the right lung base. Right chest wall subcutaneous emphysema. Cardiomegaly is similar to prior. Right pneumothorax is similar to slightly decreased from prior exam. No new focal lung consolidation or pleural effusion. IMPRESSION: Right chest tube placement, with right chest wall subcutaneous emphysema. Right pneumothorax, similar to slightly decreased from prior. Dictated by Jhoan Tobin MD @ Feb 19 2019 3:26PM Signed by Dr. Jhoan Tobin @ Feb 19 2019 3:28PM
--- NOTE | 2019-02-19 15:38 | PCM.POSTAN ---
POST ANESTHESIA ASSESSMENT - MENTAL STATUS Mental Status: Alert, Oriented - VITAL SIGNS Vital Signs: Last Vital Signs Temp 36.9 C 02/19/19 14:38 Pulse 70 02/19/19 15:18 Resp 16 02/19/19 15:18 BP 127/63 02/19/19 15:18 Pulse Ox 92 L 02/19/19 15:18 - RESPIRATORY Respiratory Status: Respiratory Rate WNL, Airway Patent, O2 Saturation Stable - CARDIOVASCULAR CV Status: Pulse Rate WNL, Blood Pressure Stable - GASTROINTESTINAL GI Status: No Symptoms - PAIN Pain Score: 5 - POST OP HYDRATION Hydration Status: Adequate & Stable - OBSERVATIONS Free Text/Narrative:: The patient tolerated the procedure well. There were no apparent anesthetic complications at this time. Discharge to floor per criteria.
--- NOTE | 2019-02-19 17:26 | PCM.SN ---
- Free Text/Narrative Note: CXR and report reviewed. Chest tube appears in good position, although pneumothorax not yet resolved. Will leave on suction overnight and see if lung expands. Will keep NPO after midnight.
--- NOTE | 2019-02-19 22:00 | OR ---
SURGEON: Jasiel Schultz M.D. DATE OF PROCEDURE: 02/19/2019 OPERATION PERFORMED: Placement of closed tube thoracostomy right chest with 24-Hebrew [place] chest tube. PRIMARY SURGEON: Jasiel Schultz M.D. ANESTHESIA: Local MAC. ASA CLASSIFICATION: II. PREOPERATIVE DIAGNOSIS: Traumatic pneumothorax. POSTOPERATIVE DIAGNOSIS: Traumatic pneumothorax. ESTIMATED BLOOD LOSS: Minimal. DESCRIPTION OF PROCEDURE: The patient was taken to the operating room and placed on the transfer cart in the supine position with his right arm extended and secured on a cart and pillow. Time-out had been called for appropriate identification of the patient and procedure. The surgical site had been marked prior to the patient entering the operating room. With induction of sedation, the right chest was prepped with Betadine solution, sterile drapes were applied. A skin incision was made in the anterior axillary line in about the 6th intercostal space. Skin had been infiltrated with 1% Xylocaine and 0.5% Marcaine solution prior to the incision being made. Tunneling incision was then made and the right pleural space was entered as identified by egress of air. The hemostat was left in place for identification. The 24-Hebrew chest tube was then brought to the patient's side and placed into the right pleural space. This was somewhat difficult to do, but it was felt that there was good egress of air through the chest tube as well as steam forming in the chest tube. The chest tube was then secured to the skin incision with a horizontal mattress 2-0 silk suture. A second suture was used to further close the incision. With that accomplished, the chest tube was connected to underwater seal. The surgical site was then dressed with Xeroform gauze and 4x4s, held in place with pink tape. The connection from the chest tube to the Pleur-Evac was also taped with pink tape. The chest tube was then secured to the patient's side. The patient did tolerate the procedure well. He was taken to recovery room in stable condition. Chest x-ray is pending. VINCENT / CHRISTINE /[id number]
[2019-02-20] MEDS: Morphine PF 30 MG/30 ML PCA Vial IV SCH (03:26)
[2019-02-20] MEDS: Dextrose 5%-0.45% NaCl 1,000 ML IV SCH ×2 (03:38→10:28)
[2019-02-20] MEDS: Cyclobenzaprine 10 MG Tab PO SCH ×3 (05:04→21:44)
--- NOTE | 2019-02-20 06:12 | PCM48HPAN ---
Post Anesthesia Note - EVALUATION WITHIN 48HRS OF ANESTHETIC Vital Signs in Normal Range: Yes Patient Participated in Evaluation: Yes Respiratory Function Stable: Yes Airway Patent: Yes Cardiovascular Function Stable: Yes Hydration Status Stable: Yes Pain Control Satisfactory: Yes Nausea and Vomiting Control Satisfactory: Yes Mental Status Recovered: Yes Vital Signs: Last Vital Signs Temp 35.9 C 02/20/19 04:00 Pulse 72 02/20/19 04:00 Resp 18 02/20/19 04:00 BP 149/68 H 02/20/19 04:00 Pulse Ox 92 L 02/20/19 04:00 - COMMENTS/OBSERVATIONS Free Text/Narrative:: The patient was sitting up in bed watching TV, and appeared comfortable, and in no distress. There were no apparent anesthetic complications at this time. Discharge from anesthesia care.
--- NOTE | 2019-02-20 08:50 | PCM.SURGPN ---
- General Info Date of Service: 02/20/19 POD#: 1 Post-Op Diagnosis: Traumatic pneumothorax Functional Status: Reports: Pain Controlled, Tolerating Diet - Review of Systems General: Denies: Fever, Weakness, Fatigue HEENT: Reports: No Symptoms Pulmonary: Denies: Shortness of Breath, Pleuritic Chest Pain Cardiovascular: Denies: Chest Pain, Palpitations Gastrointestinal: Denies: Abdominal Pain, Decreased Appetite, Nausea, Vomiting Genitourinary: Reports: No Symptoms Musculoskeletal: Reports: No Symptoms Skin: Reports: No Symptoms Neurological: Reports: No Symptoms Psychiatric: Reports: No Symptoms - Patient Data Vitals - Most Recent: Last Vital Signs Temp 96.8 F 02/20/19 07:43 Pulse 87 02/20/19 07:43 Resp 20 02/20/19 07:43 BP 144/71 H 02/20/19 07:43 Pulse Ox 94 L 02/20/19 07:43 Weight - Most Recent: 328 lb 14.875 oz I&O - Last 24 Hours: Intake & Output 02/19/19 02/20/19 02/20/19 19:59 03:59 11:59 Intake Total 2640 1273 Output Total 800 1335 Balance 1840 -62 Med Orders - Current: Current Medications Cyclobenzaprine HCl (Flexeril) 10 mg PO TID [facility] Last Admin: 02/20/19 05:04 Dose: Not Given Diphenhydramine HCl (Benadryl) 25 mg IVPUSH Q6H PRN PRN Reason: Itching Diphenhydramine HCl (Benadryl) 25 mg PO Q6H PRN PRN Reason: Itching Fentanyl (Sublimaze) 50 mcg IVPUSH Q5M PRN PRN Reason: Pain (severe 7-10) Stop: 02/20/19 13:06 Last Admin: 02/19/19 15:06 Dose: 50 mcg Dextrose/Sodium Chloride (Dextrose 5%-1/2 Ns) 1,000 mls @ 150 mls/hr IV ASDIRECTED [facility] Last Admin: 02/20/19 03:38 Dose: 150 mls/hr Morphine Sulfate (Morphine Lithoplate Maker 30 Mg In 30 Ml) 0 mg IV ASDIRECTED [facility]; Protocol Last Admin: 02/20/19 03:26 Dose: 30 mg Naloxone HCl (Narcan) 0.04 mg IVPUSH Q3M PRN PRN Reason: Respiratory Depression Ondansetron HCl (Zofran) 4 mg IVPUSH Q6H PRN PRN Reason: Nausea/Vomiting Ondansetron HCl (Zofran) 4 mg IVPUSH Q6H PRN PRN Reason: Nausea/Vomiting Ondansetron HCl (Zofran) 4 mg IVPUSH ONETIME PRN PRN Reason: Nausea/Vomiting Sodium Chloride (Saline Flush) 10 ml FLUSH ASDIRECTED PRN PRN Reason: Keep Vein Open Last Admin: 02/18/19 13:59 Dose: 10 ml Sodium Chloride (Saline Flush) 2.5 ml FLUSH ASDIRECTED PRN PRN Reason: Keep Vein Open Last Admin: 02/18/19 13:59 Dose: 2.5 ml Discontinued Medications Albuterol (Proventil Hfa) Confirm Administered Dose 6.7 gm INH .STK-MED ONE Stop: 02/19/19 14:30 Albuterol/Ipratropium (Duoneb 3.0-0.5 Mg/3 Ml) 3 ml NEB ONETIME ONE Stop: 02/19/19 14:51 Last Admin: 02/19/19 14:57 Dose: 3 ml Bupivacaine HCl (Sensorcaine-Mpf 0.5%) Confirm Administered Dose 10 ml .ROUTE .STK-MED ONE Stop: 02/19/19 13:19 Esmolol HCl (Esmolol) Confirm Administered Dose 100 mg .ROUTE .STK-MED ONE Stop: 02/19/19 14:25 Hydromorphone HCl (Dilaudid) 1 mg IVPUSH ONETIME ONE Stop: 02/18/19 15:01 Last Admin: 02/18/19 15:12 Dose: 1 mg Hydromorphone HCl (Dilaudid) 1 mg IVPUSH Q6H PRN PRN Reason: Pain Hydromorphone HCl (Dilaudid) 1 mg IVPUSH ONETIME ONE Stop: 02/18/19 17:54 Last Admin: 02/18/19 18:23 Dose: 1 mg Acetaminophen (Ofirmev) Confirm Administered Dose 100 mls @ as directed IV .STK- MED ONE Stop: 02/19/19 13:58 Iopamidol (Isovue Multipack-370 (76%)) 75 ml IVPUSH ONETIME STA Stop: 02/18/19 14:59 Last Admin: 02/18/19 14:59 Dose: 75 ml Ketamine HCl (Ketalar) Confirm Administered Dose 500 mg .ROUTE .STK-MED ONE Stop: 02/19/19 13:16 Lidocaine HCl (Xylocaine 1%) Confirm Administered Dose 20 ml .ROUTE .STK-MED ONE Stop: 02/19/19 14:14 Lidocaine/Epinephrine (Xylocaine 1% With Epinephrine 1:100,000) Confirm Administered Dose 20 ml .ROUTE .STK-MED ONE Stop: 02/19/19 13:10 Midazolam HCl (Versed 1 Mg/Ml) Confirm Administered Dose 2 mg .ROUTE .STK-MED ONE Stop: 02/19/19 13:16 Morphine Sulfate (Morphine) 4 mg IVPUSH ONETIME ONE Stop: 02/18/19 13:32 Last Admin: 02/18/19 13:56 Dose: 4 mg Ondansetron HCl (Zofran) 4 mg IVPUSH ONETIME ONE Stop: 02/18/19 15:01 Last Admin: 02/18/19 15:10 Dose: 4 mg Propofol (Diprivan 20 Ml) Confirm Administered Dose 200 mg .ROUTE .STK-MED ONE Stop: 02/19/19 13:16 Propofol (Diprivan 20 Ml) Confirm Administered Dose 200 mg .ROUTE .STK-MED ONE Stop: 02/19/19 13:19 - Exam Wound/Incisions: Dressing Dry and Intact Quality Assessment: Supplemental Oxygen, DVT Prophylaxis General: Alert, Oriented, Cooperative, No Acute Distress HEENT: Pupils Equal, Pupils Reactive Neck: Supple Lungs: Clear to Auscultation, Normal Respiratory Effort, Other (no air leak noted, CXR looks improved to me. Official report not yet available.) Cardiovascular: Regular Rate, Regular Rhythm GI/Abdominal Exam: Normal Bowel Sounds, Soft, Non-Tender Extremities: Normal Inspection, Normal Range of Motion, Non-Tender, No Pedal Edema, Normal Capillary Refill Skin: Warm, Dry, Intact Neurological: No New Focal Deficit Psy/Mental Status: Alert, Normal Affect, Normal Mood - Problem List & Annotations (1) Fall from height of greater than 3 feet SNOMED Code(s): 0444954 Code(s): W17.89XA - OTHER FALL FROM ONE LEVEL TO ANOTHER, INITIAL ENCOUNTER Status: Acute Priority: High Current Visit: Yes Onset Date: ~02/18/19 (2) Pneumothorax SNOMED Code(s): 26340125 Code(s): J93.9 - PNEUMOTHORAX, UNSPECIFIED Status: Acute Priority: High Current Visit: Yes Onset Date: ~02/18/19 Qualifiers: Pneumothorax type: traumatic Encounter type: initial encounter Qualified Code(s): S27.0XXA - Traumatic pneumothorax, initial encounter (3) Rib fracture SNOMED Code(s): 68953000 Code(s): S22.39XA - FRACTURE OF ONE RIB, UNSP SIDE, INIT FOR CLOS FX Status : Acute Priority: High Current Visit: Yes Qualifiers: Encounter type: initial encounter Rib fracture type: single rib Fracture type: closed Laterality: right Qualified Code(s): S22.31XA - Fracture of one rib, right side, initial encounter for closed fracture - Problem List Review Problem List Initiated/Reviewed/Updated: Yes - My Orders Last 24 Hours: Active Orders 24 hr Category Date Time Status Chest Tube Management [RC] ASDIRECTED Care 02/19/19 14:50 Active Communication Order [RC] ROUTINE Care 02/19/19 14:48 Active Pulse Oximetry [RC] INTERMITTENT Care 02/19/19 14:48 Active RT Aerosol Therapy [RC] ASDIRECTED Care 02/19/19 14:50 Active Up ad Abril [RC] ASDIRECTED Care 02/19/19 14:47 Active Regular Diet [DIET] Diet 02/20/19 Breakfast Ordered Chest 1V Frontal [CR] AM Exams 02/20/19 05:11 Taken Ondansetron [Zofran] Med 02/19/19 13:05 Active 4 mg IVPUSH ONETIME PRN fentaNYL [Sublimaze] Med 02/19/19 13:05 Active 50 mcg IVPUSH Q5M PRN Sequential Compression Device [OM.PC] Routine Oth 02/19/19 14:48 Ordered Medication Orders Cyclobenzaprine HCl (Flexeril) 10 mg PO TID [facility]I Last Admin: 02/20/19 05:04 Dose: Admin: 02/19/19 21:44 Dose: 10 mg Admin: 02/19/19 14:05 Dose: Admin: 02/19/19 05:37 Dose: Admin: 02/18/19 22:04 Dose: Diphenhydramine HCl (Benadryl) 25 mg IVPUSH Q6H PRN PRN Reason: Itching Diphenhydramine HCl (Benadryl) 25 mg PO Q6H PRN PRN Reason: Itching Fentanyl (Sublimaze) 50 mcg IVPUSH Q5M PRN PRN Reason: Pain (severe 7-10) Stop: 02/20/19 13:06 Last Admin: 02/19/19 15:06 Dose: 50 mcg Dextrose/Sodium Chloride (Dextrose 5%-1/2 Ns) 1,000 mls @ 150 mls/hr IV ASDIRECTED [facility] Last Admin: 02/20/19 03:38 Dose: 150 mls/hr Infusion: 02/20/19 03:38 Dose: 150 mls/hr Admin: 02/19/19 21:44 Dose: 150 mls/hr Infusion: 02/19/19 21:44 Dose: 150 mls/hr Admin: 02/19/19 15:54 Dose: 150 mls/hr Infusion: 02/19/19 14:10 Dose: 150 mls/hr Admin: 02/19/19 07:29 Dose: 150 mls/hr Infusion: 02/19/19 07:25 Dose: 150 mls/hr Admin: 02/19/19 00:44 Dose: 150 mls/hr Infusion: 02/19/19 00:28 Dose: 150 mls/hr Admin: 02/18/19 17:47 Dose: 150 mls/hr Morphine Sulfate (Morphine Lithoplate Maker 30 Mg In 30 Ml) 0 mg IV ASDIRECTED [facility]; Protocol Last Admin: 02/20/19 03:26 Dose: 30 mg Admin: 02/19/19 08:57 Dose: 30 mg Admin: 02/18/19 20:58 Dose: 30 mg Naloxone HCl (Narcan) 0.04 mg IVPUSH Q3M PRN PRN Reason: Respiratory Depression Ondansetron HCl (Zofran) 4 mg IVPUSH Q6H PRN PRN Reason: Nausea/Vomiting Ondansetron HCl (Zofran) 4 mg IVPUSH Q6H PRN PRN Reason: Nausea/Vomiting Ondansetron HCl (Zofran) 4 mg IVPUSH ONETIME PRN PRN Reason: Nausea/Vomiting Sodium Chloride (Saline Flush) 10 ml FLUSH ASDIRECTED PRN PRN Reason: Keep Vein Open Last Admin: 02/18/19 13:59 Dose: 10 ml Sodium Chloride (Saline Flush) 2.5 ml FLUSH ASDIRECTED PRN PRN Reason: Keep Vein Open Last Admin: 02/18/19 13:59 Dose: 2.5 ml - Assessment Assessment (Free Text/Narrative):: Patient reports there was a large "gush of air" through the chest tube when he moved from the OR cart to his bed. He is feeling much better and not short of breath. CXR looks improved to me--report not yet available. - Plan Plan (Free Text/Narrative):: Will keep chest tube to suction today and recheck film in the morning. Regular diet.
--- NOTE | 2019-02-20 09:01 | CR ---
Indication: Pneumothorax and chest tube placement Technique: Chest 1 view Comparison: 02/19/2019 in Findings/Impression: Cardiovascular and mediastinum: Heart size and vasculature are normal in caliber and appearance. Lungs and pleural space: Right basilar chest tube is unchanged in position. Right apical pneumothorax is unchanged in size. Lungs and pleural spaces are otherwise clear. No change from yesterday`s exam. Bones and soft tissues: No acute findings. Dictated by Bassam Barnhart MD @ Feb 20 2019 8:58AM Signed by Dr. Bassam Barnhart @ Feb 20 2019 9:00AM
[2019-02-20] MEDS ORDERED: Dextrose 5%-0.45% NaCl 1,000 ML IV SCH (12:45)
[2019-02-20] MEDS ORDERED: Iopamidol 755 MG/ML 500 ML Multipack Bottle IVPUSH STA (15:16)
--- NOTE | 2019-02-20 15:48 | CT ---
CT chest Technique: Multiple axial sections through the chest were obtained. Study was obtained without and with intravenous contrast. Findings: Subcutaneous air is noted within the right chest wall. Right sided chest tube is seen which points posteriorly. Minimal apical pneumothorax is seen. Slight atelectasis is seen posteriorly within the right lung. Minimal atelectasis is seen posteriorly within the left lung. Lungs otherwise are clear. Mediastinum and hilar regions are unremarkable. No pericardial thickening is seen. Surgical clips are seen from prior cholecystectomy. Visualized upper abdominal structures are otherwise unremarkable. Bone window settings were reviewed which shows slight cortical bump off the lateral right fourth rib most likely representing old injury. No definite acute rib fracture is appreciated. Impression: 1. Minimal apical pneumothorax with right chest tube in place. 2. Atelectasis seen posteriorly within the right lung base with minimal areas of atelectasis within the left lung base. 3. Other findings which are believed to be incidental as noted above. Diagnostic code #3 MTDD
--- NOTE | 2019-02-20 16:12 | PCM.SN ---
- Free Text/Narrative Note: CT scan shows only a small apical pneumothorax. Will leave him on suction tonight and go to underwater seal at 0600 hours with a chest x-ray at 0900.
[2019-02-21] MEDS: Morphine PF 30 MG/30 ML PCA Vial IV SCH (05:20)
[2019-02-21] MEDS: Cyclobenzaprine 10 MG Tab PO SCH ×2 (05:23→13:16)
[2019-02-21] MEDS ORDERED: Morphine 10 MG/ML Syringe IVPUSH PRN (08:26)
[2019-02-21] MEDS: Acetaminophen/HYDROcodone 325-5 MG Tab PO PRN ×2 (09:24→13:59)
--- NOTE | 2019-02-21 09:52 | CR ---
Indication: Pneumothorax Technique: Chest 1 view Comparison: 02/20/2019 Findings/Impression: Cardiovascular and mediastinum: Heart size and vasculature are normal in caliber and appearance. Lungs and pleural space: Right basilar chest tube is unchanged. Small right apical pneumothorax has decreased in size but persists. Remainder of the lungs and pleural spaces are clear. Bones and soft tissues: No acute findings. Dictated by Bassam Barnhart MD @ Feb 21 2019 9:45AM Signed by Dr. Bassam Barnhart @ Feb 21 2019 9:49AM
--- NOTE | 2019-02-21 11:16 | PCM.SN ---
- Free Text/Narrative Note: Chest tube removed without difficulty. Site dressed with Xeroform, gauze and pink tape. Breath sounds clear and symmetrical clear after removal. PA/Lat CXR ordered for 1300 hours.
[2019-02-21 12:21] VITALS: BP 131/73; PULSE 69
--- NOTE | 2019-02-21 13:41 | CR ---
INDICATION: Status post chest tube removal. COMPARISON: From earlier today at 0906 hours FINDINGS: PA views of the chest were obtained during inspiration and expiration at 1258 hours. During the interval, the right basilar chest tube has been removed. The previously seen 10 percent right apical pneumothorax is unchanged in appearance. It measures 2.6 centimeters from the apex of the lung to the apex of the pleural surface of the chest. There continues to be minimal patchy right lateral basilar infiltrate consistent with atelectasis. The rest of the chest remains clear. The heart remains normal in size. The mediastinum is normal in appearance. The osseous structures are normal in appearance for the patient`s age. IMPRESSION: Stable 10 percent right apical pneumothorax following removal of the right chest tube. Stable mild patchy atelectasis in the right lateral lung base. Dictated by Savage Grover MD @ Feb 21 2019 1:36PM Signed by Dr. Savage Grover @ Feb 21 2019 1:40PM
--- NOTE | 2019-02-21 17:04 | PCM.DCSUM1 ---
Discharge Summary - Hospital Course Free Text/Narrative:: Patient is a 38-year-old gentleman who was admitted to the hospital after a fall on February 18. He had a very small pneumothorax when he presented, however, by the second day this had increased in size to approximately 20-25%. He therefore underwent placement of a 24 [place] chest tube for reexpansion of the lung. His lung did gradually re-expand. A CT scan of the chest done on the did reveal a very small apical pneumothorax, which was not felt significant. His lung remained stable and he was placed to underwater seal early this morning. Again, the lung remained inflated and the chest tube was removed. 2 hours after chest tube removal a subsequent chest x-ray did reveal about a 10% pneumothorax. It was not clinically significant and it was felt that replacement of the chest tube was not necessary. He did deny shortness of breath and did not feel uncomfortable breathing. He was informed of the chest x -ray results as well as the fact that he would need to continue using his incentive spirometer upon discharge. HPI Initial Comments: Patient is a 38-year-old gentleman, fall from height greater than 12 feet. He sustained a right seventh rib fracture as well as a 20% to 25% right pneumothorax. That did require closed tube thoracostomy. Diagnosis: Stroke: No - Discharge Data Discharge Date: 02/21/19 Discharge Disposition: Home, Self-Care 01 Condition: Stable - Referral to Home Health Primary Care Physician: PCP Unknown - Discharge Diagnosis/Problem(s) (1) Fall from height of greater than 3 feet SNOMED Code(s): 3848577 ICD Code: W17.89XA - OTHER FALL FROM ONE LEVEL TO ANOTHER, INITIAL ENCOUNTER Status: Acute Priority: High Onset Date: ~02/18/19 (2) Pneumothorax SNOMED Code(s): 85582322 ICD Code: J93.9 - PNEUMOTHORAX, UNSPECIFIED Status: Acute Priority: High Onset Date: ~02/18/19 Qualifiers: Pneumothorax type: traumatic Encounter type: initial encounter Qualified Code(s): S27.0XXA - Traumatic pneumothorax, initial encounter (3) Rib fracture SNOMED Code(s): 73042853 ICD Code: S22.39XA - FRACTURE OF ONE RIB, UNSP SIDE, INIT FOR CLOS FX Status: Acute Priority: High Qualifiers: Encounter type: initial encounter Rib fracture type: single rib Fracture type: closed Laterality: right Qualified Code(s): S22.31XA - Fracture of one rib, right side, initial encounter for closed fracture - Patient Summary/Data Operative Procedure(s) Performed: Right closed tube thoracostomy - Patient Instructions Diet: Usual Diet as Tolerated Activity: No Lifting Over 25 Pounds, Rest and Relax Today Driving: Do Not Drive Showering/Bathing: No Showering Notify Provider of: Fever, Increased Pain, Nausea and/or Vomiting Other/Special Instructions: See Dr. Schultz on 02/26. PA/Lat CXR at clinic appointment. Rx sent electronically. Use incentive spirometer 10X q1h while awake. - Discharge Plan Prescriptions/Med Rec: Acetaminophen/HYDROcodone [[place] 325-5 MG] 1 tab PO Q4H PRN 5 Days #30 tablet PRN Reason: Pain (Moderate 4-6) Cyclobenzaprine [Flexeril] 10 mg PO TID 5 Days #15 tablet Home Medications: Home Meds Acetaminophen/HYDROcodone [[place] 325-5 MG] 1 tab PO Q4H PRN 5 Days #30 tablet [Rx] Cyclobenzaprine [Flexeril] 10 mg PO TID 5 Days #15 tablet 02/21/19 [Rx] Patient Handouts: Acetaminophen; Hydrocodone tablets or capsules, Cyclobenzaprine tablets, Incentive Spirometer, Pneumothorax, Rib Fracture, Easy- to-Read Referrals: Jasiel Schultz MD [Physician] - 02/26/19 1:30 pm (Please arrive 15 minutes early for your appointment with valid ID and insurance card. ) - Discharge Summary/Plan Comment DC Time >30 min.: No - General Info Date of Service: 02/21/19 Functional Status: Reports: Pain Controlled, Tolerating Diet, Ambulating, Urinating, Incentive Spirometry. Denies: New Symptoms - Review of Systems General: Denies: Fever, Weakness, Fatigue, Malaise HEENT: Reports: No Symptoms Pulmonary: Reports: Cough. Denies: Shortness of Breath, Sputum, Hemoptysis Cardiovascular: Reports: No Symptoms Gastrointestinal: Denies: Abdominal Pain, Constipation, Decreased Appetite, Diarrhea, Nausea, Vomiting Genitourinary: Denies: Dysuria, Frequency, Burning, Pain, Urgency Musculoskeletal: Denies: Neck Pain, Shoulder Pain Skin: Denies: Cyanosis, Jaundice, Mottled, Pallor, Diaphoresis Neurological: Denies: Confusion, Dizziness, Headache Psychiatric: Reports: No Symptoms - Patient Data Vitals - Most Recent: Last Vital Signs Temp 97.1 F 02/21/19 12:00 Pulse 69 02/21/19 12:00 Resp 18 02/21/19 12:00 BP 131/73 02/21/19 12:00 Pulse Ox 93 L 02/21/19 12:00 Weight - Most Recent: 328 lb 14.875 oz I&O - Last 24 hours: Intake & Output 02/21/19 02/21/19 02/21/19 03:59 11:59 19:59 Intake Total 1647 1100 Output Total 1013 500 Balance 634 600 Med Orders - Current: Current Medications Discontinued Medications Hydrocodone Bitart/Acetaminophen ([place] 325-5 Mg) 1 - 2 tab PO Q4H PRN PRN Reason: Pain (moderate 4-6) Last Admin: 02/21/19 13:59 Dose: 1 tab Albuterol (Proventil Hfa) Confirm Administered Dose 6.7 gm INH .STK-MED ONE Stop: 02/19/19 14:30 Albuterol/Ipratropium (Duoneb 3.0-0.5 Mg/3 Ml) 3 ml NEB ONETIME ONE Stop: 02/19/19 14:51 Last Admin: 02/19/19 14:57 Dose: 3 ml Bupivacaine HCl (Sensorcaine-Mpf 0.5%) Confirm Administered Dose 10 ml .ROUTE .STK-MED ONE Stop: 02/19/19 13:19 Cyclobenzaprine HCl (Flexeril) 10 mg PO TID CLARI Last Admin: 02/21/19 13:16 Dose: 10 mg Diphenhydramine HCl (Benadryl) 25 mg IVPUSH Q6H PRN PRN Reason: Itching Diphenhydramine HCl (Benadryl) 25 mg PO Q6H PRN PRN Reason: Itching Esmolol HCl (Esmolol) Confirm Administered Dose 100 mg .ROUTE .STK-MED ONE Stop: 02/19/19 14:25 Fentanyl (Sublimaze) 50 mcg IVPUSH Q5M PRN PRN Reason: Pain (severe 7-10) Stop: 02/20/19 13:06 Last Admin: 02/19/19 15:06 Dose: 50 mcg Hydromorphone HCl (Dilaudid) 1 mg IVPUSH ONETIME ONE Stop: 02/18/19 15:01 Last Admin: 02/18/19 15:12 Dose: 1 mg Hydromorphone HCl (Dilaudid) 1 mg IVPUSH Q6H PRN PRN Reason: Pain Hydromorphone HCl (Dilaudid) 1 mg IVPUSH ONETIME ONE Stop: 02/18/19 17:54 Last Admin: 02/18/19 18:23 Dose: 1 mg Dextrose/Sodium Chloride (Dextrose 5%-1/2 Ns) 1,000 mls @ 150 mls/hr IV ASDIRECTED [facility] Last Admin: 02/20/19 10:28 Dose: 150 mls/hr Acetaminophen (Ofirmev) Confirm Administered Dose 100 mls @ as directed IV .STK- MED ONE Stop: 02/19/19 13:58 Dextrose/Sodium Chloride (Dextrose 5%-1/2 Ns) 1,000 mls @ 50 mls/hr IV ASDIRECTED [facility] Last Admin: 02/20/19 17:50 Dose: 50 mls/hr Iopamidol (Isovue Multipack-370 (76%)) 75 ml IVPUSH ONETIME STA Stop: 02/18/19 14:59 Last Admin: 02/18/19 14:59 Dose: 75 ml Iopamidol (Isovue Multipack-370 (76%)) 100 ml IVPUSH ONETIME STA Stop: 02/20/19 15:17 Last Admin: 02/20/19 15:17 Dose: 100 ml Ketamine HCl (Ketalar) Confirm Administered Dose 500 mg .ROUTE .STK-MED ONE Stop: 02/19/19 13:16 Lidocaine HCl (Xylocaine 1%) Confirm Administered Dose 20 ml .ROUTE .STK-MED ONE Stop: 02/19/19 14:14 Lidocaine/Epinephrine (Xylocaine 1% With Epinephrine 1:100,000) Confirm Administered Dose 20 ml .ROUTE .STK-MED ONE Stop: 02/19/19 13:10 Midazolam HCl (Versed 1 Mg/Ml) Confirm Administered Dose 2 mg .ROUTE .STK-MED ONE Stop: 02/19/19 13:16 Morphine Sulfate (Morphine) 4 mg IVPUSH ONETIME ONE Stop: 02/18/19 13:32 Last Admin: 02/18/19 13:56 Dose: 4 mg Morphine Sulfate (Morphine Cement Sack Breaker 30 Mg In 30 Ml) 0 mg IV ASDIRECTED CLARI; Protocol Last Admin: 02/21/19 05:20 Dose: 30 mg Morphine Sulfate (Morphine) 0 mg IVPUSH Q1H PRN PRN Reason: Pain (severe 7-10) Naloxone HCl (Narcan) 0.04 mg IVPUSH Q3M PRN PRN Reason: Respiratory Depression Ondansetron HCl (Zofran) 4 mg IVPUSH ONETIME ONE Stop: 02/18/19 15:01 Last Admin: 02/18/19 15:10 Dose: 4 mg Ondansetron HCl (Zofran) 4 mg IVPUSH Q6H PRN PRN Reason: Nausea/Vomiting Ondansetron HCl (Zofran) 4 mg IVPUSH Q6H PRN PRN Reason: Nausea/Vomiting Ondansetron HCl (Zofran) 4 mg IVPUSH ONETIME PRN PRN Reason: Nausea/Vomiting Propofol (Diprivan 20 Ml) Confirm Administered Dose 200 mg .ROUTE .STK-MED ONE Stop: 02/19/19 13:16 Propofol (Diprivan 20 Ml) Confirm Administered Dose 200 mg .ROUTE .STK-MED ONE Stop: 02/19/19 13:19 Sodium Chloride (Saline Flush) 10 ml FLUSH ASDIRECTED PRN PRN Reason: Keep Vein Open Last Admin: 02/18/19 13:59 Dose: 10 ml Sodium Chloride (Saline Flush) 2.5 ml FLUSH ASDIRECTED PRN PRN Reason: Keep Vein Open Last Admin: 02/18/19 13:59 Dose: 2.5 ml - Exam Quality Assessment: Reports: DVT Prophylaxis. Denies: Supplemental Oxygen, Urine Catheter, Skin Breakdown General: Reports: Alert, Oriented, Cooperative, No Acute Distress HEENT: Reports: Pupils Equal, Pupils Reactive Neck: Reports: Supple Lungs: Reports: Clear to Auscultation, Normal Respiratory Effort. Denies: Crackles, Rales, Rhonchi, Wheezing Cardiovascular: Reports: Regular Rate, Regular Rhythm, No Murmurs. Denies: Tachycardia GI/Abdominal Exam: Normal Bowel Sounds, Soft, Non-Tender (Male) Exam: No Hernia Rectal (Males) Exam: Deferred Back Exam: Reports: Normal Inspection, Full Range of Motion Extremities: Normal Inspection, Normal Range of Motion, Normal Capillary Refill Skin: Reports: Warm, Dry, Intact Wound/Incisions: Reports: Healing Well Neurological: Reports: No New Focal Deficit Psy/Mental Status: Reports: Alert, Normal Affect, Normal Mood Discharge Operative/Procedures - Procedures Performed Chest Tube Indication: pneumothorax
== END 2019-02-21 15:33 | disposition home or self-care (01) | DRG 135 ==
LOC: MW.ED 13:05 → MW.MS 16:47 → OBSVTOIN 02-20 12:37
PROVIDERS: ADMIT Internal Medicine; ATTEND Surgery
PROC: 0W9900Z Drainage of Right Pleural Cavity with Drainage Device, Open Approach (ICD-10-PCS; principal; 2019-02-19)
PROC: 0WP900Z Removal of Drainage Device from Right Pleural Cavity, Open Approach (ICD-10-PCS; 2019-02-21)
DX: S27.0XXA Traumatic pneumothorax, initial encounter (principal); S22.31XA Fracture of one rib, right side, initial encounter for closed fracture; F17.210 Nicotine dependence, cigarettes, uncomplicated; W11.XXXA Fall on and from ladder, initial encounter; Z90.49 Acquired absence of other specified parts of digestive tract
CPT/HCPCS: 36415; 71045; 71045-26; 71046; 71046-26; 71260; 71260-26; 71270; 71270-26; 73502-26-RT; 73502-RT; 80053; 85025; 94640; 96361; 96374; 96375; 96376; 99285-25; A9270-GY; G0378; J0131; J1170; J2001; J2250; J2270; J2274; J2405; J2704; J3010; J3490; J7042; J7620-GY; Q9967

== ENCOUNTER 2023-10-15 17:06 | Emergency (ER) | payer OTHER, BC ==
[2023-10-15 17:16] VITALS: BP 142/79; PULSE 81
[2023-10-15] MEDS: Acetaminophen/HYDROcodone 325-10 MG Tab PO ONE (18:22)
== END 2023-10-15 19:11 | disposition home or self-care (01) ==
LOC: MW.ED 17:06
DX: S82.831A Other fracture of upper and lower end of right fibula, initial encounter for closed fracture (principal); F17.210 Nicotine dependence, cigarettes, uncomplicated; Z88.0 Allergy status to penicillin; Z79.899 Other long term (current) drug therapy; Z90.49 Acquired absence of other specified parts of digestive tract; Z75.8 Other problems related to medical facilities and other health care; X50.0XXA Overexertion from strenuous movement or load, initial encounter; Y93.89 Activity, other specified
CPT/HCPCS: 29515; 73610-26-RT; 73610-RT; 99283; 99283-25; A9270-GY

== ENCOUNTER 2023-10-18 06:33 | Day surgery (SDC) | payer BC, OTHER ==
[2023-10-18] MEDS ORDERED: Ondansetron 4 MG/2 ML SDV IVPUSH PRN (07:07)
[2023-10-18] MEDS ORDERED: fentaNYL 50 MCG/ML SDV IVPUSH PRN (07:07)
[2023-10-18] MEDS ORDERED: Metoclopramide 10 MG/2 ML SDV IVPUSH PRN (07:07)
[2023-10-18] MEDS ORDERED: Naloxone 0.4 MG/ML SDV IVPUSH PRN (07:07)
[2023-10-18] MEDS ORDERED: Morphine 2 MG/ML SYRINGE IVPUSH PRN (07:07)
[2023-10-18] MEDS ORDERED: Albuterol 0.083% 2.5 MG/3 ML Neb Soln NEB PRN (07:07)
[2023-10-18] MEDS ORDERED: droPERidol 5 MG/2 ML SDV IVPUSH PRN (07:07)
[2023-10-18] MEDS ORDERED: Bupivacaine 0.25% 30 ML SDV ONE (07:25)
[2023-10-18] MEDS ORDERED: Ondansetron 4 MG/2 ML SDV ONE ×2 (07:32→10:01)
[2023-10-18] MEDS ORDERED: Dexamethasone 4 MG/ML 5 ML MDV ONE (07:32)
[2023-10-18] MEDS ORDERED: Rocuronium Bromide 50 MG/5 ML Syringe ONE (07:32)
[2023-10-18] MEDS ORDERED: Propofol 200 MG/20 ML SDV ONE (07:32)
[2023-10-18] MEDS ORDERED: Ketorolac 30 MG/ML SDV ONE (07:32)
[2023-10-18] MEDS ORDERED: Midazolam 1 MG/ML 2 ML SDV ONE (07:32)
[2023-10-18] MEDS ORDERED: Sugammadex Sodium 200 MG/2 ML VIAL IV ONE (07:32)
[2023-10-18] MEDS ORDERED: fentaNYL 100 MCG/2 ML SDV ONE ×2 (07:32→08:33)
[2023-10-18] MEDS ORDERED: Lidocaine 2% 5 ML SDV ONE (07:32)
[2023-10-18] MEDS ORDERED: Ketamine HCL/NACL, ISO-OSM 50 MG/5 ML Syringe ONE (07:33)
[2023-10-18] MEDS ORDERED: Ropivacaine 0.5% 5 MG/ML 30 ML SDV ONE (07:34)
[2023-10-18] MEDS ORDERED: ceFAZolin 1 GM Vial ONE (08:02)
[2023-10-18] MEDS: Lactated Ringers 1,000 ML IV SCH (09:48)
[2023-10-18] MEDS: HYDROmorphone 1 MG/ML Syringe IVPUSH PRN (10:30)
[2023-10-18] MEDS: Acetaminophen 1,000 MG in Premix Bag 1 BAG IV ONE (11:28)
[2023-10-18 12:34] VITALS: BP 157/75; PULSE 68
== END 2023-10-18 12:20 | disposition home or self-care (01) ==
LOC: MW.SDS 06:33
PROVIDERS: ATTEND Orthopaedic Surgery
DX: S82.61XA Displaced fracture of lateral malleolus of right fibula, initial encounter for closed fracture (principal); S93.431A Sprain of tibiofibular ligament of right ankle, initial encounter; E66.9 Obesity, unspecified; Z68.43 Body mass index [BMI] 50.0-59.9, adult; Z79.899 Other long term (current) drug therapy; Z88.0 Allergy status to penicillin
CPT/HCPCS: 27792; 27829; 64445; 76000; J0131; J0665; J0690; J1100; J1170; J1885; J2250; J2405; J2704; J2795; J3010; J3490; J7120